=== PATIENT | male | born 1985 | race Caucasian/White ===

== ENCOUNTER 2017-01-14 06:15 | Emergency (ER) | payer OTHER ==
[~2017-01-14] VITALS: Ht 188 cm; Wt 79.5 kg
[2017-01-14 06:20] VITALS: TEMP 36.7; Ht 188 cm; Wt 79.5 kg
[2017-01-14] MEDS ORDERED: CARI350T27 PO (06:40)
[2017-01-14] MEDS ORDERED: IBUP-1427 PO (06:40)
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
[2017-01-14] MEDS ORDERED: BUPR-79 PO (07:07)
[2017-01-14] MEDS ORDERED: IBUPROFEN 600 MG TAB PO STA (07:23)
[2017-01-14 07:40] VITALS: BP 123/60; PULSE 84; O2SAT 99
== END 2017-01-14 07:30 | disposition home or self-care (01) ==
LOC: C.EDB 06:17
DX: M62.830 Muscle spasm of back (principal); F17.200 Nicotine dependence, unspecified, uncomplicated; Z79.899 Other long term (current) drug therapy; Z88.0 Allergy status to penicillin; Z88.8 Allergy status to other drugs, medicaments and biological substances; Z98.890 Other specified postprocedural states

== ENCOUNTER 2017-03-20 03:45 | Emergency (ER) | payer OTHER ==
[~2017-03-20] VITALS: Ht 188 cm; Wt 78.7 kg
[~2017-03-20 03:45] MED LIST: BUPR-79 PO; IBUP-1427 PO
[2017-03-20 03:51] VITALS: TEMP 36.7; Ht 188 cm; Wt 78.7 kg
[2017-03-20] MEDS ORDERED: CARISOPRODOL 350 MG TAB PO ONE (04:30)
[2017-03-20 05:42] VITALS: BP 128/62; PULSE 84; O2SAT 98
[2017-03-20] MEDS ORDERED: CARI350T27 PO (05:49)
[2017-03-20] MEDS ORDERED: PRED20TA PO (05:49)
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
--- NOTE | 2017-03-20 06:54 | DIAGNOSTIC IMAGING REPORT ---
L-SPINE MIN 4 VIEWS ROUTINE CLINICAL HISTORY: Left leg radiculopathy COMPARISON STUDY: No previous studies for comparison. FINDINGS: No fractures or subluxations are visualized. No destructive lesions are delineated. There is a very minimal spinal curvature. There is no pathologic bowel dilatation. A surgical clip is visualized in the left upper quadrant. IMPRESSION: No fractures, subluxations, or destructive lesions are visualized. No significant disc space narrowing. Electronically signed by: Bc Rae M.D. 03/20/2017 6:52 AM Dictated Date/Time: 03/20/2017 6:52 AM
== END 2017-03-20 06:03 | disposition home or self-care (01) ==
LOC: C.EDB 03:46 → C.EDA 06:03
DX: M54.16 Radiculopathy, lumbar region (principal); F17.200 Nicotine dependence, unspecified, uncomplicated; Z87.442 Personal history of urinary calculi; Z98.890 Other specified postprocedural states; Z79.899 Other long term (current) drug therapy; Z88.0 Allergy status to penicillin; Z88.8 Allergy status to other drugs, medicaments and biological substances; Z82.49 Family history of ischemic heart disease and other diseases of the circulatory system

== ENCOUNTER 2017-04-08 03:03 | Emergency (ER) | payer OTHER ==
[~2017-04-08] VITALS: Ht 188 cm; Wt 80.4 kg
[~2017-04-08 03:03] MED LIST changes: -IBUP-1427 PO; +PRED20TA PO
[2017-04-08 03:06] VITALS: TEMP 37.1; Ht 188 cm; Wt 80.4 kg
[2017-04-08] MEDS ORDERED: NORCO 5/325MG HOME PACK PO ONE (03:45)
[2017-04-08] MEDS ORDERED: NAPR-1169 PO (03:50)
[2017-04-08] MEDS ORDERED: HYDR-5688 PO (03:50)
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
[2017-04-08 04:03] VITALS: BP 138/78; PULSE 97; O2SAT 96
== END 2017-04-08 04:07 | disposition home or self-care (01) ==
LOC: C.EDB 03:04 → C.EDA 04:07
DX: M54.16 Radiculopathy, lumbar region (principal); F17.200 Nicotine dependence, unspecified, uncomplicated; Z90.81 Acquired absence of spleen

== ENCOUNTER 2019-01-20 12:05 | Inpatient (IN) ==
[2019-01-20] MEDS ORDERED: cefTRIAXone SODIUM 2,000 MG/70 ML BAG IV STA (12:54)
[2019-01-20] MEDS ORDERED: VANCOMYCIN HCL 1,750 MG in SODIUM CHLORIDE 0.9% 500 ML IV ONE (12:54)
[2019-01-20] MEDS ORDERED: VANCOMYCIN CONSULT ACTIVE PRN (12:54)
[2019-01-20] MEDS ORDERED: SODIUM CHLORIDE 0.9% 1000ML 2,000 ML IV ONE (12:55)
[2019-01-20 13:13] LABS: Basophils # (auto) 0.05 K/uL (0-0.2); Basophils % (auto) 0.3 %; Eosinophils # (auto) 0.31 K/uL (0-0.5); Hematocrit (blood only) 41.1 % (42-52); Hemoglobin 14.1 g/dL (14.0-18.0); Immature Granulocytes # (auto) 0.05 K/uL (0.00-0.02); Immature Granulocytes % (auto) 0.3 %; Lymphocytes # (auto) 0.88 K/uL (1.2-3.4); Lymphocytes % (auto) 5.6 %; Mean Corpuscular Hgb Conc 34.3 g/dL (32-36); Mean Corpuscular Volume 91.1 fL (80-100); Mean Platelet Volume 9.3 fL (7.4-10.4); Monocytes # (auto) 1.88 K/uL (0.11-0.59); Neutrophils # (auto) 12.53 K/uL (1.4-6.5); Neutrophils % (auto) 79.8 %; Platelet Count 379 K/uL (130-400); RDW Coefficient of Variation 13.7 % (11.5-14.5); RDW Standard Deviation 45.5 fL (36.4-46.3); Red Blood Count 4.51 M/uL (4.7-6.1)
--- NOTE | 2019-01-20 13:21 | XRay Report ---
XR chest 1V portable HISTORY: 34 years-old Male Sepsis acute sepsis COMPARISON: CT abdomen and pelvis 01/04/2019 TECHNIQUE: Portable AP view of the chest FINDINGS: Cardiomediastinal and hilar silhouettes are within normal limits. There is no pneumothorax, pleural e ffusion, focal airspace consolidation or overt pulmonary edema. Bones of the chest appear to be gross ly intact. IMPRESSION: No acute process. The above report was generated using voice recognition software. It may contain grammatical, syntax o r spelling errors. Electronically signed by: Anthony Can M.D. 01/20/2019 1:19 PM
[2019-01-20 13:24] LABS: Prothrombin Time 10.3 Seconds (9.0-12.0)
[2019-01-20 13:29] LABS: Alanine Aminotransferase 20 U/L (12-78); Albumin Level 3.9 gm/dl (3.4-5.0); Aspartate Aminotransferase 13 U/L (15-37); BUN Creatinine Ratio 9.3 (10-20); Bilirubin Direct < 0.1 mg/dl (0-0.2); Blood Urea Nitrogen 11 mg/dl (7-18); Calcium 8.6 mg/dl (8.5-10.1); Carbon Dioxide 25 mmol/L (21-32); Creatinine Clr Calc Pharmacy 108.2 ml/min; Est GFR (African American) 98.1; Est GFR (Non-African American) 84.6; Glucose 100 mg/dl (70-99); Magnesium 2.1 mg/dl (1.8-2.4)
[2019-01-20 13:41] LABS: Albumin Globulin Ratio 1.1 (0.9-2); Alkaline Phosphatase 55 U/L (45-117); Bilirubin,Total 0.2 mg/dl (0.2-1); Chloride 106 mmol/L (98-107); Globulin 3.5 gm/dl (2.5-4.0); Phosphorus 2.5 mg/dl (2.5-4.9); Potassium 3.8 mmol/L (3.5-5.1); Sodium 134 mmol/L (136-145); Total Protein 7.4 gm/dl (6.4-8.2)
[2019-01-20 13:49] LABS: Appearance Urine Clear (Clear); Bacteria Urine Automated Negative (Negative); Bilirubin Urine Negative (Negative); Blood Urine Trace (Negative); Cast Urine Automated 0 /lpf (0-5); Color Urine Yellow; Epithelial Cell Urine Auto 0-5 /lpf (0-5); Glucose Urine UA Negative (Negative); Ketones Urine Negative (Negative); Leukocyte Esterase Urine Negative (Negative); Nitrite Urine Negative (Negative); Protein Urine Negative (Negative); Urobilinogen Urine Negative (Negative); WBC Urine Automated 0 /hpf (0-5)
[2019-01-20] MEDS ORDERED: ACETAMINOPHEN 1,000 MG/100 ML VIAL IV STA (13:49)
[2019-01-20] MEDS ORDERED: IOVERSOL 100ml IV PRN (14:30)
--- NOTE | 2019-01-20 14:50 | CT Scan Report ---
CT SCAN OF THE ABDOMEN AND PELVIS WITH IV CONTRAST CLINICAL HISTORY: Generalized abdominal pain. Fever. COMPARISON STUDY: Recent prior abdominal CT scans dated 01/04/2019 and 01/01/2019. TECHNIQUE: Following the IV administration of 94 cc of Optiray 320, CT scan of the abdomen and pelvi s is performed from the lung bases to the proximal femora. Images are reviewed in the axial, sagittal , and coronal planes. IV contrast was administered without complication. A dose lowering technique wa s utilized adhering to the principles of ALARA. FINDINGS: Lung bases: The heart is normal in size and without pericardial effusion. The lung bases are clear. Liver: The contrast-enhanced liver is normal in size, contour, and attenuation. There is no intrahepa tic biliary ductal dilatation. The hepatic veins and portal veins are patent. Gallbladder: Contracted. Spleen: The spleen is not identified and presumed surgically absent. Splenules are noted in the left upper quadrant. Pancreas: Unremarkable. Adrenal glands: Unremarkable. Kidneys: The contrast enhanced kidneys are normal in size and without hydronephrosis. The kidneys enh ance symmetrically. Abdominal vasculature: The abdominal aorta is normal in course and caliber. Bowel: There is mild colonic fecal retention. No bowel obstruction is seen. The appendix is well-vis ualized and normal. Peritoneum: There is no intraperitoneal free air or abdominal ascites. There is a small fat-containin g umbilical hernia. Lymphadenopathy: None. Pelvic viscera: The bladder wall appears mildly thickened and pericystic stranding is suggested. The prostate and seminal vesicles are normal as imaged. Bilateral varicoceles are suspected. Skeletal structures: No lytic or blastic lesions are seen. IMPRESSION: Question cystitis. Correlation with clinical findings and urinalysis will be required. Electronically signed by: Meño Chanel M.D. 01/20/2019 2:49 PM
[2019-01-20] MEDS ORDERED: METOCLOPRAMIDE HCL INJ 5 MG/ML 2 ML VIAL IV STA (14:56)
--- NOTE | 2019-01-20 15:15 | Emergency Department Note ---
Entered by Rosalva Villasenor acting as a scribe for Stefano García MD History of Present Illness General Chief complaint: Illness Stated complaint: COLD, FEVER, BODY ACHES Time Seen by Provider: 01/20/19 12:42 Source: patient History of Present Illness Onset (ago): day(s) (last night) Location: head Pain Consistency: + other (persistent) Maximum Pain Intensity: 8 Quality: + other (fever) Relieved By: not by medication (aspirin) Associated symptoms: + other (diffuse body pain, chills, congestion, rhinorrhea, pain around kidneys, lower back pain) The patient is a 34 year old male with a history of a splenectomy in 2002 that is presenting to the Emergency Room with complaints of a persistent fever that started last night. The patient reports that he woke up and his eyes were burning. He states that he started to feel feverish with associated chills. He notes that tried a warm bath with no relief in his symptoms. He states that his entire body hurts but notes that his lower back and abdomen are the most severe. The patient notes some associated congestion and rhinorrhea. He reports that he took a home pack of pain medication that he was given after his last stay in the hospital which helped to relieve the pain. He notes that aspirin did not relieve his pain. He states that he has been in the hospital recently for kidney pain and has been started on antibiotics each time. He notes that his white count was elevated and his lymph nodes were swollen during his last visit. The patient denies any recent known tick bites but notes that he works outside often. He denies any known history of kidney stones. The patient reports that he has not been able to make an appointment with a GI doctor. 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 He notes that he smokes a pack of cigarettes every 3 days and is trying to quit. The patient notes that he had his spleen removed after it ruptured during an accident. Home Medications Home Medications Medication Instructions Recorded Confirmed Type famotidine 40 mg PO DAILY PRN 06/26/18 01/20/19 History Allergies Allergy/AdvReac Type Severity Reaction Status Date / Time Penicillins Allergy Intermediate hives Verified 01/20/19 12:42 cyclobenzaprine AdvReac Mild dizzy, Verified 01/20/19 12:42 drunk feeling Past Med/Surg History Medical History Abdominal pain (Acute) Viral syndrome (Acute) Tobacco use disorder 1 pack every 3 days History of renal colic (Chronic) Surgical History History of splenectomy (Chronic) Social History Preferred Language: Korean marital status: Single Current Living Situation: Alone current occupational status: employed Feels Safe at Home: Yes Smoking Status: Current every day smoker Review of Systems See HPI for pertinent positives & negatives. and A total of 10 systems reviewed and were otherwise negative Physical Exam Vital Signs Vital Signs - 24 hr 01/20/19 12:18 01/20/19 13:12 01/20/19 13:13 Temperature 38.0 C H Temperature Source Oral Sepsis Recent Fever Within 48 Hours Yes Sepsis New/Unexplained Change in Mental Status Yes Sepsis Action Taken by Nursing Physician Notified Pulse Rate 111 H 100 H Pulse Rate from SpO2 Sensor 98 H Respiratory Rate 22 25 H Respiratory Effort / Characteristics Non-Labored Respiratory Depth Normal Blood Pressure 118/73 145/80 H Blood Pressure Mean 88 101 Blood Pressure Position Sitting Pulse Oximetry 99 97 98 Oxygen Delivery Method Room Air Room Air 01/20/19 13:18 01/20/19 13:20 01/20/19 13:31 Temperature Temperature Source Sepsis Recent Fever Within 48 Hours Sepsis New/Unexplained Change in Mental Status Sepsis Action Taken by Nursing Pulse Rate 101 H 108 H 90 Pulse Rate from SpO2 Sensor 99 H 102 H 89 Respiratory Rate 22 24 19 Respiratory Effort / Characteristics Respiratory Depth Blood Pressure Blood Pressure Mean Blood Pressure Position Pulse Oximetry 98 98 99 Oxygen Delivery Method 01/20/19 13:40 Temperature Temperature Source Sepsis Recent Fever Within 48 Hours Sepsis New/Unexplained Change in Mental Status Sepsis Action Taken by Nursing Pulse Rate 93 H Pulse Rate from SpO2 Sensor 93 H Respiratory Rate 20 Respiratory Effort / Characteristics Respiratory Depth Blood Pressure Blood Pressure Mean Blood Pressure Position Pulse Oximetry 97 Oxygen Delivery Method GENERAL: Awake, alert, uncomfortable-appearing, in no distress HENT: Normocephalic, atraumatic. Oropharynx with dry mucous membranes and otherwise unremarkable. EYES: Normal conjunctiva. Sclera non-icteric. NECK: Supple. No nuchal rigidity. FROM. No JVD. RESPIRATORY: CTAB CARDIAC: Tachycardic rate, normal rhythm. Extremities warm and well perfused. Pulses equal. ABDOMEN: Soft, non-distended. Generalized abdominal tenderness. No rebound or guarding. No masses. RECTAL: Deferred. MUSCULOSKELETAL: Chest examination reveals no tenderness. The back is symmetrical on inspection without obvious abnormality. There is no CVA tenderness to palpation. No joint edema. LOWER EXTREMITIES: Calves are equal size bilaterally and non-tender. No edema. No discoloration. NEURO: Normal sensorium. No sensory or motor deficits noted. SKIN: No rash or jaundice noted. Course 1317:The patient was evaluated in room C02B. A complete history and physical examination was performed. 1510: Case was discussed with Dr. Asher, [facility] hospitalist, who will evaluate the patient for admission. Administered Medications Ioversol (Optiray 320 100ml) 94 ml IV ONCE PRN PRN Reason: Interaction Checking Stop: 01/24/19 14:29 Last Admin: 01/20/19 14:32 Dose: 94 ml Documented by: [id number] Discontinued Medications Ceftriaxone Sodium (Rocephin) 2,000 mg in 70 mls @ 140 mls/hr IV NOW STA Stop: 01/20/19 13:23 Last Infusion: 01/20/19 14:03 Dose: 0 mls/hr Documented by: [id number] Admin: 01/20/19 13:22 Dose: 140 mls/hr Documented by: [id number] Vancomycin HCl 1,750 mg/ (Sodium Chloride) 535 mls @ 200 mls/hr IV NOW ONE; Protocol Stop: 01/20/19 15:34 Last Admin: 01/20/19 13:17 Dose: 200 mls/hr Documented by: [id number] Sodium Chloride (Nss 1000ml) 2,000 mls @ 999 mls/hr IV .Q2H1M ONE Stop: 01/20/19 14:55 Last Infusion: 01/20/19 15:04 Dose: 0 mls/hr Documented by: [id number] Admin: 01/20/19 13:17 Dose: 999 mls/hr Documented by: [id number] Acetaminophen (Ofirmev) 1,000 mg in 100 mls @ 400 mls/hr IV NOW STA Stop: 01/20/19 14:03 Last Infusion: 01/20/19 14:21 Dose: 0 mls/hr Documented by: [id number] Admin: 01/20/19 13:59 Dose: 400 mls/hr Documented by: [id number] Metoclopramide HCl (Reglan) 10 mg IV NOW STA Stop: 01/20/19 14:57 Last Admin: 01/20/19 15:19 Dose: 10 mg Documented by: [id number] Medical Decision Making Differential Diagnosis Differential diagnosis: Etiologies such as viral syndrome, otitis, pharyngitis, pneumonia, influenza, meningitis, urinary tract infection, sepsis, bacteremia, as well as others were entertained. Medical Records Attestation: I reviewed the patient's medical records. Home Medications Current Medication List: was personally reviewed by me Laboratory Data Attestation: I reviewed the patient's lab results. Result diagrams: 01/20/19 13:04 01/20/19 13:04 Lab Results 01/20/19 01/20/19 01/20/19 Range/Units 13:04 13:04 13:04 WBC 15.70 H (4.8-10.8) K/uL RBC 4.51 L (4.7-6.1) M/uL Hgb 14.1 (14.0-18.0) g/dL Hct 41.1 L (42-52) % MCV 91.1 (80-100) fL MCH 31.3 (25-34) pg MCHC 34.3 (32-36) g/dL RDW Std Deviation 45.5 (36.4-46.3) fL RDW Coeff of Jayson 13.7 (11.5-14.5) % Plt Count 379 (130-400) K/uL MPV 9.3 (7.4-10.4) fL Immature Gran % (Auto) 0.3 % Neut % (Auto) 79.8 % Lymph % (Auto) 5.6 % Baldwin % (Auto) 12.0 % Eos % (Auto) 2.0 % Baso % (Auto) 0.3 % Immature Gran # (Auto) 0.05 H (0.00-0.02) K/uL Neut # (Auto) 12.53 H (1.4-6.5) K/uL Lymph # (Auto) 0.88 L (1.2-3.4) K/uL Baldwin # (Auto) 1.88 H (0.11-0.59) K/uL Eos # (Auto) 0.31 (0-0.5) K/uL Baso # (Auto) 0.05 (0-0.2) K/uL PT 10.3 (9.0-12.0) Seconds INR 1.0 (0.9-1.1) APTT 28.0 (21.0-31.0) Seconds PTT Ratio 1.0 Sodium 134 L (136-145) mmol/L Potassium 3.8 (3.5-5.1) mmol/L Chloride 106 (98-107) mmol/L Carbon Dioxide 25 (21-32) mmol/L Anion Gap 3.0 (3-11) BUN 11 (7-18) mg/dl Creatinine 1.14 (0.6-1.4) mg/dl Est Cr Clr Drug Dosing 108.2 ml/min Est GFR ( Amer) 98.1 Est GFR (Non-Af Amer) 84.6 BUN/Creatinine Ratio 9.3 L (10-20) Glucose 100 H (70-99) mg/dl Lactate (0.4-2.0) mmol/L Calcium 8.6 (8.5-10.1) mg/dl Phosphorus 2.5 (2.5-4.9) mg/dl Magnesium 2.1 (1.8-2.4) mg/dl Total Bilirubin 0.2 (0.2-1) mg/dl Direct Bilirubin < 0.1 (0-0.2) mg/dl AST 13 L (15-37) U/L ALT 20 (12-78) U/L Alkaline Phosphatase 55 (45-117) U/L Total Protein 7.4 (6.4-8.2) gm/dl Albumin 3.9 (3.4-5.0) gm/dl Globulin 3.5 (2.5-4.0) gm/dl Albumin/Globulin Ratio 1.1 (0.9-2) Urine Color Urine Appearance (Clear) Urine pH (4.5-7.5) Ur Specific [place] (1.000-1.030) Urine Protein (Negative) Urine Glucose (UA) (Negative) Urine Ketones (Negative) Urine Blood (Negative) Urine Nitrite (Negative) Urine Bilirubin (Negative) Urine Urobilinogen (Negative) Ur Leukocyte Esterase (Negative) Urine WBC (Auto) (0-5) /hpf Urine RBC (Auto) (0-4) /hpf U Hyaline Cast (Auto) (0-5) /lpf U Epithel Cells (Auto) (0-5) /lpf Urine Bacteria (Auto) (Negative) Lyme Disease IgG Ab (Negative) Lyme Disease IgM Ab (Negative) 01/20/19 01/20/19 01/20/19 Range/Units 13:04 13:04 13:33 WBC (4.8-10.8) K/uL RBC (4.7-6.1) M/uL Hgb (14.0-18.0) g/dL Hct (42-52) % MCV (80-100) fL MCH (25-34) pg MCHC (32-36) g/dL RDW Std Deviation (36.4-46.3) fL RDW Coeff of Jayson (11.5-14.5) % Plt Count (130-400) K/uL MPV (7.4-10.4) fL Immature Gran % (Auto) % Neut % (Auto) % Lymph % (Auto) % Baldwin % (Auto) % Eos % (Auto) % Baso % (Auto) % Immature Gran # (Auto) (0.00-0.02) K/uL Neut # (Auto) (1.4-6.5) K/uL Lymph # (Auto) (1.2-3.4) K/uL Baldwin # (Auto) (0.11-0.59) K/uL Eos # (Auto) (0-0.5) K/uL Baso # (Auto) (0-0.2) K/uL PT (9.0-12.0) Seconds INR (0.9-1.1) APTT (21.0-31.0) Seconds PTT Ratio Sodium (136-145) mmol/L Potassium (3.5-5.1) mmol/L Chloride (98-107) mmol/L Carbon Dioxide (21-32) mmol/L Anion Gap (3-11) BUN (7-18) mg/dl Creatinine (0.6-1.4) mg/dl Est Cr Clr Drug Dosing ml/min Est GFR ( Amer) Est GFR (Non-Af Amer) BUN/Creatinine Ratio (10-20) Glucose (70-99) mg/dl Lactate 1.0 (0.4-2.0) mmol/L Calcium (8.5-10.1) mg/dl Phosphorus (2.5-4.9) mg/dl Magnesium (1.8-2.4) mg/dl Total Bilirubin (0.2-1) mg/dl Direct Bilirubin (0-0.2) mg/dl AST (15-37) U/L ALT (12-78) U/L Alkaline Phosphatase (45-117) U/L Total Protein (6.4-8.2) gm/dl Albumin (3.4-5.0) gm/dl Globulin (2.5-4.0) gm/dl Albumin/Globulin Ratio (0.9-2) Urine Color Yellow Urine Appearance Clear (Clear) Urine pH 8.0 H (4.5-7.5) Ur Specific [place] 1.020 (1.000-1.030) Urine Protein Negative (Negative) Urine Glucose (UA) Negative (Negative) Urine Ketones Negative (Negative) Urine Blood Trace H (Negative) Urine Nitrite Negative (Negative) Urine Bilirubin Negative (Negative) Urine Urobilinogen Negative (Negative) Ur Leukocyte Esterase Negative (Negative) Urine WBC (Auto) 0 (0-5) /hpf Urine RBC (Auto) 5-10 H (0-4) /hpf U Hyaline Cast (Auto) 0 (0-5) /lpf U Epithel Cells (Auto) 0-5 (0-5) /lpf Urine Bacteria (Auto) Negative (Negative) Lyme Disease IgG Ab Negative (Negative) Lyme Disease IgM Ab Negative (Negative) Imaging Data Radiologist's Impression: Radiology results as stated below per my review and the radiologist's interpretation: XR chest 1V portable HISTORY: 34 years-old Male Sepsis acute sepsis COMPARISON: CT abdomen and pelvis 01/04/2019 TECHNIQUE: Portable AP view of the chest FINDINGS: Cardiomediastinal and hilar silhouettes are within normal limits. There is no pneumothorax, pleural effusion, focal airspace consolidation or overt pulmonary edema. Bones of the chest appear to be grossly intact. IMPRESSION: No acute process. The above report was generated using voice recognition software. It may contain grammatical, syntax or spelling errors. Electronically signed by: Anthony Can M.D. 01/20/2019 1:19 PM ---- CT SCAN OF THE ABDOMEN AND PELVIS WITH IV CONTRAST CLINICAL HISTORY: Generalized abdominal pain. Fever. COMPARISON STUDY: Recent prior abdominal CT scans dated 01/04/2019 and 01/01/2019. TECHNIQUE: Following the IV administration of 94 cc of Optiray 320, CT scan of the abdomen and pelvis is performed from the lung bases to the proximal femora. Images are reviewed in the axial, sagittal, and coronal planes. IV contrast was administered without complication. A dose lowering technique was utilized adhering to the principles of ALARA. FINDINGS: Lung bases: The heart is normal in size and without pericardial effusion. The lung bases are clear. Liver: The contrast-enhanced liver is normal in size, contour, and attenuation. There is no intrahepatic biliary ductal dilatation. The hepatic veins and portal veins are patent. Gallbladder: Contracted. Spleen: The spleen is not identified and presumed surgically absent. Splenules are noted in the left upper quadrant. Pancreas: Unremarkable. Adrenal glands: Unremarkable. Kidneys: The contrast enhanced kidneys are normal in size and without hydronephrosis. The kidneys enhance symmetrically. Abdominal vasculature: The abdominal aorta is normal in course and caliber. Bowel: There is mild colonic fecal retention. No bowel obstruction is seen. The appendix is well-visualized and normal. Peritoneum: There is no intraperitoneal free air or abdominal ascites. There is a small fat-containing umbilical hernia. Lymphadenopathy: None. Pelvic viscera: The bladder wall appears mildly thickened and pericystic stranding is suggested. The prostate and seminal vesicles are normal as imaged. Bilateral varicoceles are suspected. Skeletal structures: No lytic or blastic lesions are seen. IMPRESSION: Question cystitis. Correlation with clinical findings and urinalysis will be required. Electronically signed by: Meño Chanel M.D. 01/20/2019 2:49 PM ECG Data Attestation: I personally reviewed and interpreted this ECG as follows: Indication: other (fever, s/p splenectomy) Rate (beats per minute): 86 Rhythm: normal sinus (with sinus arrhythmia ) Findings: + other (normal axis); no ST depression, no ST elevation and no acute ischemic change Blood Pressure Blood Pressure Findings: Normal blood pressure MDM Narrative The patient is a pleasant 34-year-old gentleman with a past medical history of asplenia who presents emergency department with feverishness, chills and body aches over the past 24 hours per hpi. On arrival patient is febrile to 38.0, tachycardic in the 110s but vital signs otherwise stable. On exam patient appears clinically dry. He has generalized abdominal tenderness without guardi ng. Given the patient is asplenic with objective fever blood cultures were drawn and patient was ordered for empiric vancomycin and ceftriaxone. EKG without overt acute ischemia. Chest x-ray negative. WBC 15.7. Lactate wnl and chemistry without acidosis. Hbg and platelets wnl. CT abd pelvis with question of Cystitis however UA negative for infection. LFTs unremarkable. Given the patient is asplenic with fever reasonable to admit the patient for further management. 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 Given normal platelets and LFTs will defer additional tick-borne testing at this time. Case was discussed with Dr. Asher, [facility] hospitalist, who will evaluate the patient for admission. Impression & Plan Fever, Sinus tachycardia, Leukocytosis, Asplenia Discharge Plan Visit Data Chief Complaint: Illness Stated Complaint: COLD, FEVER, BODY ACHES ED Provider: Stefano García Discharge Problem: Fever, Sinus tachycardia, Leukocytosis, Asplenia Patient Disposition: Being Evaluated by Hospitalist Forms Stand Alone Forms: My [facility] Differential Prescriptions Prescriptions: No Action famotidine 20 mg Tablet 40 mg PO DAILY PRN (Reason: Gastric Reflux) RF: 0 Referrals Referrals: PCP,NO [Primary Care Provider] - The scribe's documentation has been prepared under my direction and personally reviewed by me in its entirety. I confirm that the note above accurately reflects all work, treatment, procedures, and medical decision making performed by me.
[2019-01-20] MEDS ORDERED: MoRPHine SULFATE 2 MG/ML CARP IV STA (15:29)
--- NOTE | 2019-01-20 15:38 | History & Physical Report ---
Date of Service January 20, 2019 Assessment & Plan (1) Viral syndrome: Fever, leukocytosis, arthralgia, low back pain. Will treat conservatively. Several doses of intravenous Solu-Medrol. IV fluids. Clear liquids for now and advance as tolerated Present on Admission?: Yes (2) Abdominal pain: Seems to be a viral etiology. Consider GI consultation if symptoms persist Present on Admission?: Yes (3) History of splenectomy: Ruptured spleen at age 16 Present on Admission?: Yes (4) DVT prophylaxis: Early ambulation History of Present Illness Chief Complaint: Fever, abdominal pain, arthralgias, low back pain Primary Care Provider: NO PCP 34-year-old male with a 1 day history of intermittent fever, diffuse abdominal pain, nausea, diffuse arthralgias, low back pain. Abdominal CT scan is negative. Chest x-ray negative. Urine analysis negative. White blood cell count is elevated. His asplenia which raises some concern but I believe he has a viral illness at this time. He will be treated conservatively with supportive care and several doses of IV steroids along with IV fluids and clear liquid diet. If his abdominal pain persist, GI consultation can be considered. He is placed on observation status for further assessment per Allergies Allergy/AdvReac Type Severity Reaction Status Date / Time Penicillins Allergy Intermediate hives Verified 01/20/19 12:42 cyclobenzaprine AdvReac Mild dizzy, Verified 01/20/19 12:42 drunk feeling Home Medications Home Medications Medication Instructions Recorded Confirmed Type famotidine 40 mg PO DAILY PRN 06/26/18 01/20/19 History Past Med/Surg History Medical History Tobacco use disorder 1 pack every 3 days History of renal colic (Chronic) Surgical History History of splenectomy (Chronic) Social History Preferred Language: Irish marital status: Single Current Living Situation: Alone current occupational status: employed Feels Safe at Home: Yes Smoking Status: Current every day smoker Review of Systems Review of Systems: Constitutional-fever and chills. Malaise ENT-no blurred vision, no double vision, no epistaxis, no sore throat Respiratory-no cough, no wheezing, no shortness of breath Cardiac-no palpitations, no chest pain, no syncope GI-diffuse abdominal discomfort and nausea. No vomiting or diarrhea -no urinary retention, no urinary incontinence, no dysuria, no hematuria Musculoskeletal-diffuse arthralgias. Low back pain Skin-no bruising, no rashes, no pruritus Neuro-no isolated weakness, no paresthesia, no weakness Psych-no depression, no anxiety Physical Exam Physical Exam: General-alert and oriented x3, no fevers, no chills HEENT-head atraumatic and normocephalic, TMs intact bilaterally, pupils equal and reactive to light, extraocular muscles intact Neck-no lymphadenopathy or thyromegaly, trachea midline Chest-clear to auscultation percussion. No rales wheezing or rhonchi Cardiac-regular rate and rhythm, normal S1 and S2, no murmurs Abdomen-normal bowel sounds, no hepatosplenomegaly. Diffuse mild tenderness Musculoskeletal-bilateral low back muscular tenderness Extremities-no cyanosis, clubbing, or edema Neuro-cranial nerves II through XII intact, motor and sensory function within normal limits, strength symmetrical 5/5, no focal deficits Psych-normal affect, normal mood Results & Data Vital Signs (Past 12 Hours) Vital Signs Temp Pulse Resp BP Pulse Ox 01/20/19 13:40 93 H 20 97 01/20/19 13:31 90 19 99 01/20/19 13:20 108 H 24 98 01/20/19 13:18 101 H 22 98 01/20/19 13:13 98 01/20/19 13:12 100 H 25 H 145/80 H 97 01/20/19 12:18 38.0 C H 111 H 22 118/73 99 Laboratory Results 01/20/19 13:04 01/20/19 13:04 PG Care Time/CCT Total # of Minutes Spent Total Time Spent with Patient: Total time spent is greater than 50% in coordination of care (as documented) at patient's floor/unit and/or counseling patient:
[2019-01-20 15:45] LABS: Lyme Ab IgG w/WB Rflx Negative (Negative); Lyme Ab IgM w/WB Rflx Negative (Negative)
[2019-01-20] MEDS ORDERED: ACETAMINOPHEN 325 MG TAB PO PRN (17:59)
[2019-01-20] MEDS ORDERED: ONDANSETRON INJ 2 MG/ML 2 ML VIAL IV PRN (17:59)
[2019-01-20] MEDS: SODIUM CHLORIDE 0.9% 1000ML 1,000 ML IV SCH (18:28)
[2019-01-20] MEDS: methylPREDNISolone 40 MG in SYRINGE 0 ML IV SCH (19:28)
[2019-01-20] MEDS ORDERED: PNEUMOCOCCAL POLYSACCHARIDES 25 MCG/0.5 ML VIAL/SYR IM ONE (21:15)
[2019-01-20] MEDS ORDERED: PNEUMOCOCCAL ADMINISTRATION CHARGE ONE (21:15)
[2019-01-20] MEDS: MoRPHine SULFATE 2 MG/ML CARP IV PRN (22:16)
[2019-01-21] MEDS: SODIUM CHLORIDE 0.9% 1000ML 1,000 ML IV SCH ×3 (01:09→17:38)
[2019-01-21] MEDS: methylPREDNISolone 40 MG in SYRINGE 0 ML IV SCH ×2 (01:09→09:36)
[2019-01-21] MEDS: MoRPHine SULFATE 2 MG/ML CARP IV PRN ×7 (02:54→22:25)
[2019-01-21] MEDS: ALUMINUM/MAGNESIUM SUSP 30 ML UDC PO PRN ×2 (07:07→19:24)
[2019-01-21] MEDS: FAMOTIDINE 20 MG TAB PO SCH (07:07)
[2019-01-21 07:20] LABS: Basophils # (auto) 0.01 K/uL (0-0.2); Basophils % (auto) 0.1 %; Hematocrit (blood only) 41.6 % (42-52); Hemoglobin 14.4 g/dL (14.0-18.0); Immature Granulocytes # (auto) 0.02 K/uL (0.00-0.02); Immature Granulocytes % (auto) 0.1 %; Lymphocytes # (auto) 0.59 K/uL (1.2-3.4); Lymphocytes % (auto) 4.1 %; Mean Corpuscular Hgb Conc 34.6 g/dL (32-36); Mean Corpuscular Volume 91.2 fL (80-100); Mean Platelet Volume 9.6 fL (7.4-10.4); Monocytes # (auto) 0.22 K/uL (0.11-0.59); Monocytes % (auto) 1.5 %; Neutrophils # (auto) 13.61 K/uL (1.4-6.5); Neutrophils % (auto) 94.2 %; Platelet Count 404 K/uL (130-400); RDW Coefficient of Variation 13.6 % (11.5-14.5); RDW Standard Deviation 44.7 fL (36.4-46.3); Red Blood Count 4.56 M/uL (4.7-6.1); White Blood Count 14.45 K/uL (4.8-10.8)
[2019-01-21 07:59] LABS: BUN Creatinine Ratio 8.7 (10-20); Calcium 8.8 mg/dl (8.5-10.1); Creatinine Clr Calc Pharmacy 138.5 ml/min; Est GFR (African American) 131.1; Est GFR (Non-African American) 113.1; Potassium 4.1 mmol/L (3.5-5.1)
[2019-01-21] MEDS ORDERED: VANCOMYCIN CONSULT ACTIVE PRN (15:12)
[2019-01-21] MEDS ORDERED: VANCOMYCIN HCL 2,000 MG in SODIUM CHLORIDE 0.9% 500 ML IV ONE (15:30)
[2019-01-21] MEDS: cefTRIAXone SODIUM 2,000 MG in DEXTROSE 5% 50 ML IV SCH (15:46)
--- NOTE | 2019-01-21 15:47 | Pharmacy Report ---
Pharmacy Abx Initial Consult - Date of Service January 21, 2019 - Pharmacy Dosing Scope Date of Consult: 01/21/19 Consultation requested by: Dr. Gaines Pharmacy is consulted to initiate Vancomycin IV dosing therapy, order appropriate labs and adjust drug dose/frequency. - Subjective The patient is a 34 year old M admitted on 01/20/19 16:12. - Objective Height: 6 ft 2 in Weight: 88 kg Vital Signs (Past 12hrs): Vital Signs Temp Pulse Pulse Resp BP BP Pulse Ox 01/21/19 14:56 36.9 C 59 L 18 117/70 96 01/21/19 07:10 36.8 C 68 18 129/76 98 Lab Results (24hrs): Laboratory Tests (24 Hours) 01/21/19 01/21/19 06:55 06:55 WBC 14.45 H Neut # (Auto) 13.61 H Creatinine 0.89 Est Cr Clr Drug Dosing 138.5 Micro Results: 01/20/19 13:04 Aerobic Blood Culture - Pending Blood Anaerobic Blood Culture - Pending 01/20/19 13:04 Aerobic Blood Culture - Pending Blood Anaerobic Blood Culture - Pending - Risk Factors for Resistance None - Assessment & Plan Assessment 34 year old M admitted for viral illness/asplenic fever Patient does have a PMH significant for splenectomy Renal function appears to be close to baseline Plan IV Vancomycin and Ceftriaxone for treatment of asplenic fever/viral illness Vancomycin IV * Estimated PK Parameters: Vd 0.7 L/kg, Gerardo 0.118 hr-1, t1/2 5.9hr * Loading dose: 2000 mg (23 mg/kg) * Maintenance dose: 1500 mg IV (17 mg/kg) every 8 hours * Goal trough level: 15 to 20 mcg/mL * Trough/Random level ordered for 01/22/19 prior to the 3rd dose Pharmacy will continue to follow and will adjust dose/frequency as necessary. Thank you.
--- NOTE | 2019-01-21 18:15 | Family Medicine Progress Note ---
Date of Service January 21, 2019 Assessment & Plan (1) Fever: Moy Rashid is a 34-year-old man here for fever with asplenia Asplenic fever Patient presented with nonspecific illness fever, feeling generally unwell, and muscular and joint pain He tells me he gets several of these illnesses per year as frequently as once every other month Treated with steroids vancomycin and Rocephin in the ED blood cultures drawn x2 We will discontinue steroids and continue IV antibiotics We will watch patient for minimum 72 hours as precaution as asplenic fever can progress to life-threatening illness very quickly Low threshold for lumbar puncture Back pain Likely musculoskeletal as opposed to due to the infection patient says he usually notices the back pain when he sick This could be due to the fact that that is when he lays in bed the most He also notices it after working for long period of time or being active We will follow him as an outpatient and further work-up his back pain history and likely refer for osteopathic manipulation therapy Does not appear to be secondary to bilateral kidney illness Health maintenance Patient currently does not follow with any primary care Patient gets sick frequently for unknown reason Patient has been trying to quit smoking and patient has chronic back pain I will try to arrange to follow patient in the outpatient setting upon discharge from this admission F/C/N: Regular diet DVT prophylaxis:Not indicated due to patient's age Disposition: MedSurg for next 72 hours (2) Leukocytosis: (3) Asplenia: (4) DVT prophylaxis: Supervising Physician Co-Signing Physician Notes I personally examined the patient and verified all nunez points of history and exam, discussed case, and agree with decision making with Dr Gaines. Main complaints now are back pain, and wondering why always gets sick. Overall feeling apparently better than admission. In general he is awake and alert and oriented pleasant no distress. HEENT normocephalic atraumatic mucous membranes moist. Breathing is unlabored no accessory muscle use good effort. Abdomen is soft he has a midline scar, no guarding/rebound/rigidity. Musculoskeletal/osteopathiche does have paraspinal asymmetric hypertrophy left greater than right, he also has bilateral probably right slightly greater than left tenderness to palpation to the 12th rib. No crepitus, no subcutaneous fluctuance. Fever/concern on sepsis in the context of an asplenic patientcontinue Vanco and Rocephin pending serial exams and culture results. Fortunately he looks extremely well and his exam/history is quite reassuring. This may in fact all be a viral syndrome, but certainly given the asplenia guidelines suggest this aggressive monitoring and management at least early on. 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 Continue supportive care. Back painappears to be highly biomechanical. I suspect that his lumbar paraspinal asymmetric hypertonicity has then led to secondary strain of the quadratus lumborum muscle, and this appears to be what he feels his pain with breathing in his low back. Further I suspect that with a steady treatment regimen of OMT once he is out of the hospital, it is likely that he will have significant improvement in pain over time. For now supportive care, diclofenac gel, work on referral to DO as outpatient. 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 Certainly would want to follow longitudinally to ensure there is no other hints of an autoimmune disease at play as well, but this seems unlikely. Presley Rashid is a 34-year-old man here for fever. 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 He is feeling okay currently he is endorsing quite a bit of back pain which is located at his quadratus lumborum muscles bilaterally. Otherwise he is feeling well his fevers and chills of past he has not had any sweats chills nausea vomiting diarrhea, cough or other upper respiratory symptoms headaches, light sensitivity, stiff neck, urinary symptoms, or new skin rashes that he is aware of Review of Systems Review of Systems: All systems reviewed & are unremarkable except as noted in HPI & below Physical Exam Physical Exam: Constitutional: 34-year-old man appears stated age lying in bed clearly uncomfortable due to back pain Eyes: Extraocular muscle movement intact bilaterally pupils equal round reactive to light no light sensitivity, anicteric sclerae Neck: No lymph nodes palpable no masses detected no tenderness palpation Respiratory: Chest symmetric expansion, lung sounds vesicular bilaterally no wheezes rhonchi or rails Cardiovascular: Regular rate regular rhythm heart sounds dual, no murmurs rubs skips or gallops Gastrointestinal: Abdomen soft nontender no mass detected no costovertebral angle tenderness Musculoskeletal: Back pain reproducible by palpation of quadratus lumborum muscles no other abnormalities detected Results & Data Vital Signs (Past 12 Hours) Vital Signs Temp Pulse Pulse Resp BP BP Pulse Ox 01/21/19 14:56 36.9 C 59 L 18 117/70 96 01/21/19 07:10 36.8 C 68 18 129/76 98 PG Care Time/CCT Total # of Minutes Spent Total Time Spent with Patient: Total time spent is greater than 50% in coordination of care (as documented) at patient's floor/unit and/or counseling patient: Resident Activity Tracking Resident Involvement: Resident Care Provided Care Provided: Adult Hospital Medicine (1) Fever Fever type: unspecified Qualified Code(s): R50.9 - Fever, unspecified
[2019-01-22] MEDS: VANCOMYCIN HCL 1,500 MG in SODIUM CHLORIDE 0.9% 500 ML IV SCH ×4 (00:48→22:42)
[2019-01-22] MEDS: ALUMINUM/MAGNESIUM SUSP 30 ML UDC PO PRN (00:48)
[2019-01-22] MEDS: MoRPHine SULFATE 2 MG/ML CARP IV PRN ×6 (01:25→23:32)
[2019-01-22] MEDS: SODIUM CHLORIDE 0.9% 1000ML 1,000 ML IV SCH ×3 (01:25→19:37)
[2019-01-22] MEDS: cefTRIAXone SODIUM 2,000 MG in DEXTROSE 5% 50 ML IV SCH ×2 (05:02→16:10)
[2019-01-22] MEDS: FAMOTIDINE 20 MG TAB PO SCH (07:26)
[2019-01-22] MEDS: DICLOFENAC SOD 1% GEL 100 GM TUBE EXT SCH ×2 (07:26→21:25)
[2019-01-22 07:47] LABS: Creatinine Clr Calc Pharmacy 154.1 ml/min; Est GFR (Non-African American) 118.2
--- NOTE | 2019-01-22 08:51 | Family Medicine Progress Note ---
Date of Service January 22, 2019 Assessment & Plan (1) Fever: Moy Dillard is a 34-year-old man here for fever with asplenia Asplenic fever Patient presented with nonspecific illness fever, feeling generally unwell, and muscular and joint pain ?has similar events per year as frequently as once every other month In the ED Treated with steroids vancomycin and Rocephin, blood cultures drawn x2 Will d/c steroids continue IV antibiotics Monitor for minimum 72 hours as precaution as asplenic fever can progress to life-threatening illness very quickly Considering his neck pain - Concern in asplenic patients for meningitis, current "neck" pain appears musculoskeletal and not meningeal We will continue to monitor Back pain Likely musculoskeletal from laying in bed Outpt f/u and work up. will arrange osteopathic manipulation therapy No concern of bilateral kidney illness Health maintenance Patient currently does not follow with any primary care Patient gets sick frequently for unknown reason Patient has been trying to quit smoking and patient has chronic back pain I will try to arrange to follow patient in the outpatient setting upon discharge from this admission F/C/N: Regular diet DVT prophylaxis:Patient low risk due to age encouraged regular ambulation Disposition: MedSurg for next 72 hours (2) Leukocytosis: (3) Asplenia: (4) DVT prophylaxis: Supervising Physician Co-Signing Physician Notes Resident Physician Supervision Note: I independently interviewed and examined the patient and verified the nunez history and physical, reviewed labs and image studies, discussed the case with the resident Dr. Gaines and agree with the findings and care plan. Subjective Patient in sitting up in bed watching television, he is feeling a lot of shoulder pain particularly on the left shoulder but also partially on right. He does not have neck pain has good range of motion of the neck and does not endorse any headache or sensitivity to light. He is otherwise feeling okay does still have a sore throat which may be because of his initial fever. Review of Systems Review of Systems: All systems reviewed & are unremarkable except as noted in HPI & below No fevers chills sweats overnight, no meningeal signs, no chest pain shortness of breath to the breathing doing any activities, using restroom okay no abdominal pain no nausea vomiting diarrhea constipation Physical Exam Physical Exam: Constitutional: 34-year-old man appears stated age lying in bed appears mildly uncomfortable Eyes: Extraocular muscle movement intact bilaterally pupils equal round reactive to light no light sensitivity, anicteric sclerae Neck: Several small lymph nodes palpable bilaterally mildly tender no masses detected Some tenderness to palpation over lateral neck muscles Respiratory: Chest symmetric expansion, lung sounds vesicular bilaterally no wheezes rhonchi or rails Cardiovascular: Regular rate regular rhythm heart sounds dual, no murmurs rubs skips or gallops Gastrointestinal: Abdomen soft nontender no mass detected no costovertebral angle tenderness Musculoskeletal: Back pain reproducible by palpation of quadratus lumborum muscles no other abnormalities detected Results & Data Vital Signs (Past 12 Hours) Vital Signs Temp Pulse Resp BP Pulse Ox 01/22/19 06:59 37 C 77 18 133/75 98 01/21/19 22:39 36.5 C 76 20 133/83 97 PG Care Time/CCT Total # of Minutes Spent Total Time Spent with Patient: Total time spent is greater than 50% in coordination of care (as documented) at patient's floor/unit and/or counseling patient: Resident Activity Tracking Resident Involvement: Resident Care Provided Care Provided: Adult Hospital Medicine (1) Fever Fever type: unspecified Qualified Code(s): R50.9 - Fever, unspecified
[2019-01-22] MEDS ORDERED: VANCOMYCIN TROUGH ONE (15:30)
[2019-01-22] MEDS: KETOROLAC 30 MG/ML VIAL IV PRN ×2 (15:40→22:42)
--- NOTE | 2019-01-22 18:17 | Pharmacy Report ---
Pharmacy Abx Dose Short Note - Date of Service January 22, 2019 - Assessment & Plan Assessment 34 year old M receiving vancomycin and ceftriaxone for empiric treatment of asplenic fever Day # 2 of antimicrobial therapy. Blood cultures x 2 show no growth at 48 hours Patient has remained afebrile since 01/20 @2123 (38 C) Plan Vancomycin * Trough level of 13.2 mcg/mL is subtherapeutic * Will change to 1500 mg IV every 6 hours * Goal trough level for this indication : 15 to 20 mcg/mL * Follow-up trough level will be obtained if patient is to continue past 48 hour empiric antibiotic stop date Ceftriaxone * 2 grams IV q12h appropriate as empiric therapy due to potential concern for meningitis Pharmacy will continue to follow and will adjust dose/frequency as necessary. Thank you.
[2019-01-23] MEDS: cefTRIAXone SODIUM 2,000 MG in DEXTROSE 5% 50 ML IV SCH (03:44)
[2019-01-23] MEDS: SODIUM CHLORIDE 0.9% 1000ML 1,000 ML IV SCH ×2 (03:45→13:05)
[2019-01-23] MEDS: VANCOMYCIN HCL 1,500 MG in SODIUM CHLORIDE 0.9% 500 ML IV SCH ×2 (05:20→10:57)
[2019-01-23] MEDS: MoRPHine SULFATE 2 MG/ML CARP IV PRN ×2 (05:55→08:59)
[2019-01-23] MEDS: DICLOFENAC SOD 1% GEL 100 GM TUBE EXT SCH (07:30)
[2019-01-23] MEDS: FAMOTIDINE 20 MG TAB PO SCH (07:30)
[2019-01-23 08:05] LABS: Hematocrit (blood only) 40.4 % (42-52); Hemoglobin 13.7 g/dL (14.0-18.0); Mean Corpuscular Hgb Conc 33.9 g/dL (32-36); Mean Corpuscular Volume 90.8 fL (80-100); Mean Platelet Volume 9.4 fL (7.4-10.4); Platelet Count 385 K/uL (130-400); RDW Coefficient of Variation 13.5 % (11.5-14.5); RDW Standard Deviation 44.9 fL (36.4-46.3); Red Blood Count 4.45 M/uL (4.7-6.1); White Blood Count 10.27 K/uL (4.8-10.8)
[2019-01-23 08:09] LABS: BUN Creatinine Ratio 9.5 (10-20); Calcium 8.3 mg/dl (8.5-10.1); Creatinine Clr Calc Pharmacy 125.8 ml/min; Est GFR (African American) 117.8; Est GFR (Non-African American) 101.6; Potassium 3.6 mmol/L (3.5-5.1)
--- NOTE | 2019-01-23 22:40 | Discharge Summary ---
Date of Service January 23, 2019 Admission HPI Per Admitting Provider 34-year-old male with a 1 day history of intermittent fever, diffuse abdominal pain, nausea, diffuse arthralgias, low back pain. Abdominal CT scan is negative. Chest x-ray negative. Urine analysis negative. White blood cell count is elevated. His asplenia which raises some concern but I believe he has a viral illness at this time. He will be treated conservatively with supportive care and several doses of IV steroids along with IV fluids and clear liquid diet. If his abdominal pain persist, GI consultation can be considered. He is placed on observation status for further assessment per Admission Exam Per Admitting Provider General-alert and oriented x3, no fevers, no chills HEENT-head atraumatic and normocephalic, TMs intact bilaterally, pupils equal and reactive to light, extraocular muscles intact Neck-no lymphadenopathy or thyromegaly, trachea midline Chest-clear to auscultation percussion. No rales wheezing or rhonchi Cardiac-regular rate and rhythm, normal S1 and S2, no murmurs Abdomen-normal bowel sounds, no hepatosplenomegaly. Diffuse mild tenderness Musculoskeletal-bilateral low back muscular tenderness Extremities-no cyanosis, clubbing, or edema Neuro-cranial nerves II through XII intact, motor and sensory function within normal limits, strength symmetrical 5/5, no focal deficits Psych-normal affect, normal mood Principal Diagnosis Asplenic Fever Discharge Exam General-alert and oriented x3, no fevers, no chills HEENT-head atraumatic and normocephalic, TMs intact bilaterally, pupils equal and reactive to light, extraocular muscles intact Neck-no lymphadenopathy or thyromegaly, trachea midline Chest-clear to auscultation percussion. No rales wheezing or rhonchi Cardiac-regular rate and rhythm, normal S1 and S2, no murmurs Abdomen-normal bowel sounds, no hepatosplenomegaly. Diffuse mild tenderness Musculoskeletal-bilateral low back muscular tenderness Extremities-no cyanosis, clubbing, or edema Neuro-cranial nerves II through XII intact, motor and sensory function within normal limits, strength symmetrical 5/5, no focal deficits Psych-normal affect, normal mood Discharge Data Allergies Allergy/AdvReac Type Severity Reaction Status Date / Time Penicillins Allergy Intermediate hives Verified 01/20/19 12:42 cyclobenzaprine AdvReac Mild dizzy, Verified 01/20/19 12:42 drunk feeling Consultations 01/20/19 14:56 ED Decision to Admit Stat Ordered Studies 01/20/19 13:35 CT abd pelvis IV con only Stat Hospital Course (1) Fever: Moy Dillard is a 34-year-old man 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 d/kareem home with no further antibiotics. Back pain Likely musculoskeletal as opposed to due to the infection patient says he usually notices the back pain when he sick This could be due to the fact that that is when he lays in bed the most He also notices it after working for long period of time or being active We will follow him as an outpatient and further work-up his back pain history and likely Health maintenance Patient currently does not follow with any primary care Patient gets sick frequently for unknown reason Patient has been trying to quit smoking and patient has chronic back pain He will follow me in clinic (2) Asplenia: Total Time Total Time Spent Total Time Spent (In Minutes): 22 Total Time Includes: Examination of the Patient, Discharge Planning, Medication Reconciliation, Communication With Other Providers and Other Discharge Plan Discharge Items Patient Disposition: Home - Self-Care Reason For Visit: SUSPECTED VIRAL SYNDROME Discharge Diagnosis: Probable viral illness, Asplenic fever Discharge Goals: Improve disease control and Improve function Activity: Resume your previous activity Non-emergency contact: Primary Care Provider Call non-emergency contact if: you have any medication questions, your symptoms worsen, your pain is not controlled, your pain is worsening and your temperature is above 100.5 Follow-up/Referrals: Ventura Gaines MD [Resident] - 01/27/19 4:10 pm (Please, follow up with Dr. Gaines on SaturdayJanuary 27 at 4:10 pm. *The office is located in [address] of [facility]. This is the big building next to this [facility]. If you need to change or cancel this appointment, call the office at [phone].) Diet: Regular Addtl Provider Instructions: Mr. Dillard it has been a pleasure to meet you and treat you for your febrile illness. We have watched you for 72 hours and are comfortable to discharge you home. If you have any new fevers, chills, rigors please return to medical care. We will have you follow up in my office at [facility] on [facility]. If you have any questions or concerns between now and then don't hesitate to call the office. For your pain and discomfort I would recommend alternating ibuprofen and tylenol throughout the day and transition to as needed after our appointment. Prescriptions: Continued famotidine 20 mg Tablet 40 mg PO DAILY PRN (Reason: Gastric Reflux) RF: 0 Stand-Alone Forms: [facility], Work/School Release (Inpt) Discharge Orders: Discharge Order (Routine); Ordered 01/23/19 Ordered By: Ventura Gaines Admission Data Admit Date/Time: 01/20/19 16:12 Attending Provider: Annalisa Mcgill Admit Provider: Atul Asher Primary Care Provider: Moriah Serra Other Providers: Atul Asher ; John Dykes Service: Medical Other Interventions: Discharge Summary Assessment (RN) Last Done: 01/23/19 13:39 DC Date/Time DO NOT enter until pt leaves facility: 01/23/19 14:00 Supervising Physician Co-Signing Physician Notes Resident Physician Supervision Note: I independently interviewed and examined the patient and verified the nunez history and physical, reviewed labs and image studies, discussed the case with the resident Dr. Gaines and agree with the findings and care plan. Resident Activity Tracking Resident Involvement: Resident Care Provided Care Provided: Adult Hospital Medicine
== END 2019-01-23 14:00 | disposition home or self-care (01) | DRG 866 ==
LOC: ED 12:05 → 2W 16:12 → SUATTDRO 16:12 → 2W 16:57

== ENCOUNTER 2019-01-25 02:48 | Observation (INO) ==
[2019-01-25] MEDS ORDERED: KETOROLAC 30 MG/ML VIAL IV STA (03:32)
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
[2019-01-25] MEDS ORDERED: SODIUM CHLORIDE 0.9% 1000ML 1,000 ML IV SCH (03:45)
[2019-01-25 04:05] LABS: Hematocrit (blood only) 39.3 % (42-52); Hemoglobin 13.9 g/dL (14.0-18.0); Mean Corpuscular Hgb Conc 35.4 g/dL (32-36); Mean Corpuscular Volume 89.1 fL (80-100); Mean Platelet Volume 9.3 fL (7.4-10.4); Platelet Count 369 K/uL (130-400); RDW Coefficient of Variation 13.3 % (11.5-14.5); RDW Standard Deviation 43.6 fL (36.4-46.3); Red Blood Count 4.41 M/uL (4.7-6.1); White Blood Count 14.94 K/uL (4.8-10.8)
[2019-01-25 04:23] LABS: Albumin Level 3.8 gm/dl (3.4-5.0); BUN Creatinine Ratio 11.9 (10-20); Calcium 8.8 mg/dl (8.5-10.1); Creatinine Clr Calc Pharmacy 138.5 ml/min; Est GFR (African American) 131.1; Est GFR (Non-African American) 113.1; Magnesium 2.4 mg/dl (1.8-2.4); Potassium 3.5 mmol/L (3.5-5.1)
[2019-01-25 04:32] LABS: Albumin Globulin Ratio 1.1 (0.9-2); Bilirubin,Total 0.3 mg/dl (0.2-1); C Reactive Protein 2.84 mg/dl (0-0.29); Globulin 3.5 gm/dl (2.5-4.0); Total Protein 7.3 gm/dl (6.4-8.2)
[2019-01-25 04:41] LABS: Basophils # (auto) 0.06 K/uL (0-0.2); Basophils % (auto) 0.4 %; Eosinophils # (auto) 0.07 K/uL (0-0.5); Eosinophils % (auto) 0.5 %; Howell-Jolly Bodies Occasional; Immature Granulocytes # (auto) 0.05 K/uL (0.00-0.02); Immature Granulocytes % (auto) 0.3 %; Lymphocytes # (auto) 1.96 K/uL (1.2-3.4); Lymphocytes % (auto) 13.1 %; Monocytes # (auto) 1.82 K/uL (0.11-0.59); Monocytes % (auto) 12.2 %; Neutrophils # (auto) 10.98 K/uL (1.4-6.5); Neutrophils % (auto) 73.5 %; Pappenheimer Bodies Occasional
[2019-01-25] MEDS ORDERED: MoRPHine SULFATE 4 MG/ML 1 ML CARP\\VIAL IV STA ×3 (04:53→18:45)
[2019-01-25] MEDS ORDERED: LIDOCAINE/EPINEPHRINE 1% 20 ML VIAL INFIL ONE (06:24)
[2019-01-25] MEDS ORDERED: fentaNYL citrate 100 MCG/2 ML VIAL IV STA (06:45)
[2019-01-25] MEDS ORDERED: VANCOMYCIN CONSULT ACTIVE PRN ×2 (08:06→10:40)
[2019-01-25] MEDS ORDERED: VANCOMYCIN HCL 1,000 MG/270 ML BAG IV STA (08:06)
[2019-01-25] MEDS ORDERED: cefTRIAXone SODIUM 2,000 MG/70 ML BAG IV STA (08:06)
--- NOTE | 2019-01-25 08:09 | CT Scan Report ---
CT head/brain wo con CLINICAL HISTORY: 34 years-old Male with fevers, asplenic, pain. Acute fever with headache TECHNIQUE: Multiple axial CT images of the head were obtained without contrast. A dose lowering tech nique was utilized adhering to the principles of ALARA. CT DOSE: 537.48 mGy.cm COMPARISON: Head CT 06/27/2018 FINDINGS: No acute intracranial hemorrhage, midline shift, intracranial mass, hydrocephalus, territorial ischem ia or abnormal extra-axial collection. The calvarium is intact. Moderate mucosal thickening of the ethmoid air cells and adenoid tonsils. M astoid air cells are clear. Soft tissues and orbits appear unremarkable. IMPRESSION: 1. No acute intracranial abnormality. 2. Moderate mucosal thickening of the ethmoid air cells. The above report was generated using voice recognition software. It may contain grammatical, syntax o r spelling errors. Electronically signed by: Anthony Can M.D. 01/25/2019 8:07 AM
--- NOTE | 2019-01-25 08:37 | XRay Report ---
XR chest 1V portable HISTORY: 34 years-old Male fever, illness acute fever COMPARISON: Chest radiograph and CT abdomen and pelvis 01/20/2019 TECHNIQUE: Portable AP view of the chest FINDINGS: Cardiomediastinal and hilar silhouettes are within normal limits. No pneumothorax, pleural effusion, focal airspace consolidation or overt pulmonary edema. Bones of the chest appear grossly intact. IMPRESSION: No acute process. The above report was generated using voice recognition software. It may contain grammatical, syntax o r spelling errors. Electronically signed by: Anthony Can M.D. 01/25/2019 8:36 AM
[2019-01-25] MEDS ORDERED: FAMOTIDINE 20 MG TAB PO PRN (10:28)
[2019-01-25] MEDS ORDERED: ONDANSETRON INJ 2 MG/ML 2 ML VIAL IV PRN (10:28)
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
--- NOTE | 2019-01-25 11:42 | Pharmacy Report ---
Pharmacy Abx Dose Short Note - Date of Service January 25, 2019 - Assessment & Plan Assessment 34 year old M returns to [facility] after discharge on 01/23 with recurrent fever. Reports fever of 101 last night with chills and body aches. LP was attempted in ED but unsuccessful. WBC 14.94 (10.3 prior to discharge on 01/23). Lyme and Heard screen negative Rapid Strep test negative Anaplasmosis sent Blood cultures x2 pending Plan Vancomycin * Prior to discharge patient was receiving Vancomycin 1500mg (~17mgkg) q6h. This regimen was started after a previous dose yielded a subtherapeutic trough. However, a trough for this new regimen was not assessed prior to discharge. * Since ~4-5 estimated half-lives have passed since last dose prior to discharge, it is unlikely that patient has any detectable levels of drug, therefore a random level is not needed. * Patient given 1gm (11 mg/kg) X1 in the ED, will supplement with another 1gm IV x1 dose to get a LD of ~23 mg/kg. * Resume Vancomycin 1500mg IV Q6H regimen and check trough level with 4th maintenance dose. This should be reflective of css. * Est p'kinetics: t1/2 ~5.7 hrs, Vd = 0.7, ke= 0.12 * Goal trough 15-20 Ceftriaxone (not a consult) * 2 grams IV q24H is appropriate for body weight, however if indicated for empiric coverage of meningitis then would suggest increasing frequency to every 12 hours. Pharmacy will continue to follow and will adjust dose/frequency as necessary. Thank you.
[2019-01-25] MEDS ORDERED: VANCOMYCIN HCL 1,000 MG in SODIUM CHLORIDE 0.9% 250 ML IV ONE (11:45)
[2019-01-25] MEDS: ACETAMINOPHEN 325 MG TAB PO PRN (12:42)
[2019-01-25 18:49] LABS: Appearance Urine Clear (Clear); Bilirubin Urine Negative (Negative); Blood Urine Negative (Negative); Color Urine Yellow; Glucose Urine UA Negative (Negative); Ketones Urine Negative (Negative); Leukocyte Esterase Urine Negative (Negative); Nitrite Urine Negative (Negative); Protein Urine Negative (Negative); Specific Gravity Urine 1.022 (1.000-1.030); Urobilinogen Urine Negative (Negative)
[2019-01-25] MEDS: VANCOMYCIN HCL 1,500 MG in SODIUM CHLORIDE 0.9% 500 ML IV SCH ×2 (19:05→23:36)
[2019-01-25] MEDS: cefTRIAXone SODIUM 2,000 MG in DEXTROSE 5% 50 ML IV SCH (22:19)
[2019-01-25] MEDS ORDERED: TRAMADOL HCL 50 MG TABLET PO STA (23:47)
[2019-01-26] MEDS ORDERED: HYDROmorphone INJ 0.5 MG/0.5 ML SYR IV STA (01:11)
[2019-01-26] MEDS: VANCOMYCIN HCL 1,500 MG in SODIUM CHLORIDE 0.9% 500 ML IV SCH ×3 (05:51→18:02)
[2019-01-26] MEDS: ACETAMINOPHEN 325 MG TAB PO PRN (05:51)
[2019-01-26 07:17] LABS: Hematocrit (blood only) 40.2 % (42-52); Hemoglobin 13.9 g/dL (14.0-18.0); Mean Corpuscular Hgb Conc 34.6 g/dL (32-36); Mean Corpuscular Volume 91.4 fL (80-100); Mean Platelet Volume 9.1 fL (7.4-10.4); Platelet Count 396 K/uL (130-400); RDW Coefficient of Variation 13.6 % (11.5-14.5); RDW Standard Deviation 44.9 fL (36.4-46.3); White Blood Count 10.44 K/uL (4.8-10.8)
[2019-01-26] MEDS: TRAMADOL HCL 50 MG TABLET PO PRN ×2 (07:46→21:44)
[2019-01-26 07:57] LABS: Albumin Level 3.2 gm/dl (3.4-5.0); BUN Creatinine Ratio 8.1 (10-20); Calcium 8.6 mg/dl (8.5-10.1); Creatinine Clr Calc Pharmacy 132.6 ml/min; Est GFR (African American) 125.5; Est GFR (Non-African American) 108.2; Potassium 3.7 mmol/L (3.5-5.1)
[2019-01-26 08:00] LABS: Albumin Globulin Ratio 0.9 (0.9-2); Bilirubin,Total 0.2 mg/dl (0.2-1); Globulin 3.7 gm/dl (2.5-4.0); Total Protein 6.9 gm/dl (6.4-8.2)
[2019-01-26 08:07] LABS: Basophils # (auto) 0.13 K/uL (0-0.2); Basophils % (auto) 1.2 %; Eosinophils # (auto) 1.03 K/uL (0-0.5); Eosinophils % (auto) 9.9 %; Immature Granulocytes # (auto) 0.03 K/uL (0.00-0.02); Immature Granulocytes % (auto) 0.3 %; Lymphocytes # (auto) 2.23 K/uL (1.2-3.4); Lymphocytes % (auto) 21.4 %; Monocytes # (auto) 1.44 K/uL (0.11-0.59); Monocytes % (auto) 13.8 %; Neutrophils # (auto) 5.58 K/uL (1.4-6.5); Neutrophils % (auto) 53.4 %
[2019-01-26] MEDS: cefTRIAXone SODIUM 2,000 MG in DEXTROSE 5% 50 ML IV SCH ×2 (08:27→21:45)
[2019-01-26] MEDS ORDERED: VANCOMYCIN HCL 500 MG in SODIUM CHLORIDE 0.9% 250 ML IV SCH (09:00)
[2019-01-26] MEDS ORDERED: cefTRIAXone SODIUM 2,000 MG in DEXTROSE 5% 50 ML IV SCH (09:00)
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
[2019-01-26] MEDS ORDERED: VANCOMYCIN TROUGH ONE (11:30)
[2019-01-26] MEDS: LIDOCAINE 5% 1 PATCH TD SCH (12:08)
--- NOTE | 2019-01-26 13:35 | Pharmacy Report ---
Pharmacy Abx Dose Short Note - Date of Service January 26, 2019 - Assessment & Plan Assessment 34 year old M receiving vancomycin after presenting to hospital with fever/myalgias Day #2 of antimicrobial therapy. Plan: Vancomycin * Trough level came back therapeutic at 18.6 mcg/ml (goal 15-20 mcg/ml) Unclear source of infection at this time, had been concerned for meningitis. Patient however declined LP in the ER. Patient remains afebrile. * Blood cultures are no growth, throat negative for strep, mono and lyme also negative - ID now consulted to follow the patient * Will continue same vancomycin dosing for now, renal function remains stable - will continue to follow Pharmacy will continue to follow and will adjust dose/frequency as necessary. Thank you.
[2019-01-26] MEDS: KETOROLAC 30 MG/ML VIAL IV PRN (15:49)
--- NOTE | 2019-01-26 20:57 | Family Medicine Progress Note ---
Date of Service January 26, 2019 Assessment & Plan (1) Body aches: 34 year old man here for aslplenic fever, was previously here for 72 hours observation on vanc and rocephin, blood cultures negative no fevers patient sent home. Bounced back 24 hours later. Asplenic Fever Treating empirically with vanc and rocephin Concern for meningitis, unsuccessful LP in ED Will repeat LP tomorrow morning under fluoroscopy White count down to 10.44 Blood cultures negative so far WIll continue antibiotics and will monitor Back Pain Secondary to LP attempt and possibly to infection (flu like illness) Ketorolac added as well as lidoderm patch over LP site F/E/N regular diet DVT PPx: none indicated up and walking Dispo: med surg (2) Neck pain: (3) Fever: Supervising Physician Co-Signing Physician Notes Resident Physician Supervision Note: I independently interviewed and examined the patient and verified the nunez history and physical, reviewed labs and image studies, discussed the case with the resident Dr. Gaines and agree with the findings and care plan. Subjective Moy Dillard feeling okay this morning, not endorsing any neck pain, though a lot of back pain at attempted LP site. Endorses no fevers or chills at this time, no headache, light sensitiivty, nausea vomiting, diarrhea, abdominal pain, shortness of breath, cough, chest pain, or swelling. He is apprehensive to try LP again but eventually begrudgingly agrees. Review of Systems Review of Systems: All systems reviewed & are unremarkable except as noted in HPI & below Physical Exam Physical Exam: General-alert and oriented x3, no fevers, no chills HEENT-head atraumatic and normocephalic, TMs intact bilaterally, pupils equal and reactive to light, extraocular muscles intact Neck-no lymphadenopathy or thyromegaly, trachea midline Chest-clear to auscultation percussion. No rales wheezing or rhonchi Cardiac-regular rate and rhythm, normal S1 and S2, no murmurs Abdomen-normal bowel sounds, no hepatosplenomegaly. Diffuse mild tenderness Musculoskeletal-bilateral low back muscular tenderness Extremities-no cyanosis, clubbing, or edema Neuro-cranial nerves II through XII intact, motor and sensory function within normal limits, strength symmetrical 5/5, no focal deficits Psych-Pressured speech Results & Data Vital Signs (Past 12 Hours) Vital Signs Temp Pulse Resp BP Pulse Ox 01/26/19 15:12 36.5 C 62 18 102/61 96 PG Care Time/CCT Total # of Minutes Spent Total Time Spent with Patient: Total time spent is greater than 50% in coordination of care (as documented) at patient's floor/unit and/or counseling patient: Resident Activity Tracking Resident Involvement: Resident Care Provided Care Provided: Adult Hospital Medicine (1) Fever Fever type: unspecified Qualified Code(s): R50.9 - Fever, unspecified
[2019-01-26] MEDS ORDERED: MoRPHine SULFATE 2 MG/ML CARP IV STA (21:38)
[2019-01-27] MEDS: KETOROLAC 30 MG/ML VIAL IV PRN ×2 (00:09→23:38)
[2019-01-27] MEDS: VANCOMYCIN HCL 1,500 MG in SODIUM CHLORIDE 0.9% 500 ML IV SCH ×6 (00:10→22:12)
[2019-01-27] MEDS ORDERED: HYDROmorphone INJ 0.5 MG/0.5 ML SYR IV STA ×2 (01:05→16:11)
[2019-01-27 06:36] LABS: Hematocrit (blood only) 40.6 % (42-52); Hemoglobin 13.8 g/dL (14.0-18.0); Mean Corpuscular Volume 92.1 fL (80-100); Mean Platelet Volume 9.3 fL (7.4-10.4); Platelet Count 412 K/uL (130-400); RDW Coefficient of Variation 13.5 % (11.5-14.5); RDW Standard Deviation 45.5 fL (36.4-46.3); Red Blood Count 4.41 M/uL (4.7-6.1); White Blood Count 7.14 K/uL (4.8-10.8)
[2019-01-27 07:13] LABS: Albumin Globulin Ratio 0.9 (0.9-2); Albumin Level 3.2 gm/dl (3.4-5.0); BUN Creatinine Ratio 13.4 (10-20); Bilirubin,Total 0.2 mg/dl (0.2-1); Calcium 9.1 mg/dl (8.5-10.1); Creatinine Clr Calc Pharmacy 138.5 ml/min; Est GFR (African American) 131.1; Est GFR (Non-African American) 113.1; Globulin 3.6 gm/dl (2.5-4.0); Potassium 4.5 mmol/L (3.5-5.1); Total Protein 6.8 gm/dl (6.4-8.2)
[2019-01-27 07:50] LABS: Giant Platelets 1+; Howell-Jolly Bodies 1+
[2019-01-27 07:52] LABS: ALC (manual) 4.21 K/uL (1.2-3.4); Basophils # (manual) 0.06 K/uL (0-0.2); Basophils % (manual) 0.9 %; Eosinophils # (manual) 1.21 K/uL (0-0.5); Lymphocytes # (manual) 2.55 K/uL (1.2-3.4); Lymphocytes % (manual) 35.7 %; Monocytes % (manual) 9.8 %; Myelocytes # (manual) 0.06 K/uL (0-0); Myelocytes % (manual) 0.9 %; Neutrophils % (manual) 12.5 %; Reactive Lymphocytes # (manual) 1.66 K/uL
[2019-01-27] MEDS: LIDOCAINE 5% 1 PATCH TD SCH (08:07)
[2019-01-27] MEDS ORDERED: LORazepam 0.5 MG TAB PO STA (08:38)
--- NOTE | 2019-01-27 08:44 | Family Medicine Progress Note ---
Date of Service January 27, 2019 Assessment & Plan (1) Body aches: 34 year old man here for aslplenic fever, was previously here for 72 hours observation on vanc and rocephin, blood cultures negative no fevers patient sent home. Bounced back 24 hours later. Asplenic Fever Treating empirically with vanc and rocephin Concern for meningitis, unsuccessful LP in ED White count down to 10.44 Blood cultures negative so far Will continue antibiotics and monitor clinical status For LP today with radiology Pain Secondary to LP attempt and possibly to infection (flu like illness) Ketorolac added as well as lidoderm patch over LP site Anxiety Gave half milligram oral Ativan one-time dose as patient threatens to cancel LP due to anxiety Neutropenia Got CBC with differential this morning patient was neutropenic with absolute neutrophil count of 0.89 Placed on neutropenic precautions We will get peripheral smear and mono spot F/E/N regular diet after procedure DVT PPx: none indicated up and walking Dispo: med surg (2) Neck pain: (3) Fever: Subjective Patient is extremely anxious this morning considering calling off lumbar puncture. Once patient's bedside and tried to reassure him, he is nervous that he is going to feel pain like he did the last time in the ED. Otherwise continues to have headaches that wax and wane and seem to affect the top of his head. No light sensitivity no neck rigidity no chest pain shortness of breath abdominal pain. Continues to have chronic low back pain exacerbated by being in bed. Physical Exam Physical Exam: General-alert and oriented x3, afebrile, Neck-no lymphadenopathy or thyromegaly, trachea midline Chest-clear to auscultation percussion. No rales wheezing or rhonchi Cardiac-regular rate and rhythm, normal S1 and S2, no murmurs Abdomen-normal bowel sounds, no hepatosplenomegaly. No tenderness today soft Musculoskeletal-bilateral low back muscular tenderness Extremities-no cyanosis, clubbing, or edema Neuro-cranial nerves II through XII intact, motor and sensory function within normal limits, strength symmetrical 5/5, no focal deficits Psych-Pressured speech, anxious affect Results & Data Vital Signs (Past 12 Hours) Vital Signs Temp Pulse Resp BP BP Pulse Ox 01/27/19 07:00 36.5 C 53 L 18 109/71 99 01/26/19 22:40 36.8 C 58 L 18 131/85 98 PG Care Time/CCT Total # of Minutes Spent Total Time Spent with Patient: Total time spent is greater than 50% in coordination of care (as documented) at patient's floor/unit and/or counseling patient: Resident Activity Tracking Resident Involvement: Resident Care Provided Care Provided: Adult Hospital Medicine (1) Fever Fever type: unspecified Qualified Code(s): R50.9 - Fever, unspecified
[2019-01-27] MEDS: cefTRIAXone SODIUM 2,000 MG in DEXTROSE 5% 50 ML IV SCH ×2 (10:30→21:27)
[2019-01-27] MEDS ORDERED: HYDROmorphone INJ 0.5 MG/0.5 ML SYR IV ONE ×2 (10:45→22:00)
[2019-01-27] MEDS ORDERED: HYDROmorphone INJ 0.5 MG/0.5 ML SYR ONE (11:14)
--- NOTE | 2019-01-27 11:38 | Fluoroscopy Report ---
FLUOROSCOPIC GUIDED LUMBAR PUNCTURE CLINICAL HISTORY: Asplenia. Fever. PROCEDURE: The risks, benefits, and alternatives to the procedure is discussed with the patient who v oiced understanding. Written informed consent was obtained. The patient was placed prone on the fluor oscopy table. The lower back was prepped and draped in the usual sterile fashion. 1% lidocaine was us ed for local anesthesia. A 22-gauge spinal needle was inserted into the L4-L5 interlaminar space, and approximately 10 cc of clear colorless cerebrospinal fluid was removed. A single spot image was save d. The patient tolerated the procedure well. There were no immediate complications. The patient was t hen returned to the medical floor for further observation. Fluoroscopy time: 0.4 minutes IMPRESSION: Fluoroscopic guided lumbar puncture with removal of approximately 10 cc of cerebrospinal fluid. There were no immediate complications. Electronically signed by: Meño Chanel M.D. 01/27/2019 11:36 AM
--- NOTE | 2019-01-27 14:20 | Infectious Disease Progress Nt ---
Date of Service January 27, 2019 Assessment & Plan (1) Fever: currently afebrile. suspect viral etiology. would benefit from LP, csf gram stain negative, culture pending. continue abx for now, follow cultures. ? if wbc elevation in part due to asplenia, especially with elevated platelets as well. procalcitonin negative, doubt bacterial infection. (2) Leukocytosis: (3) Asplenia: Subjective remains afebrile since admission. remain on vanco and ctx. had csf culture done, gram stain negative, culture pending, no other csf (cell counts etc) available. blood cultures remain negative from this admission and last admission, mono negative, EBV pending. wbc improved today. tolerating abx. Results & Data Vital Signs (Past 12 Hours) Vital Signs Temp Pulse Resp BP BP Pulse Ox 01/27/19 12:27 37 C 54 L 18 125/84 01/27/19 11:30 36.5 C 50 L 14 112/71 96 01/27/19 11:23 66 14 123/66 97 01/27/19 10:43 36.8 C 61 14 118/73 98 01/27/19 10:13 36.8 C 86 20 119/85 97 01/27/19 07:00 36.5 C 53 L 18 109/71 99 Laboratory Results Microbiology 01/27/19 10:04 Cerebral Spinal Fluid Gram Stain - Final 01/25/19 03:32 Throat Group A Streptococcus Rapid Screen - Final Specimen negative for Group A Beta Strep by rapid method. Culture report to follow. 01/25/19 03:32 Throat Group A Beta-Hemolytic Strep Cult - Final No beta strep isolated. 01/26/19 01:35 Throat Group A Streptococcus Rapid Screen - Final Specimen negative for Group A Beta Strep by rapid method. Culture report to follow. 01/26/19 01:35 Throat Group A Beta-Hemolytic Strep Cult - Preliminary No beta strep isolated to date. 01/25/19 04:10 Blood Aerobic Blood Culture - Preliminary No growth in Aerobic bottle after 48 hours. 01/25/19 04:10 Blood Anaerobic Blood Culture - Preliminary No growth in Anaerobic bottle after 48 hours. 01/25/19 03:50 Blood Aerobic Blood Culture - Preliminary No growth in Aerobic bottle after 48 hours. 01/25/19 03:50 Blood Anaerobic Blood Culture - Preliminary No growth in Anaerobic bottle after 48 hours. (1) Fever Fever type: unspecified Qualified Code(s): R50.9 - Fever, unspecified
[2019-01-27] MEDS ORDERED: Nursing to Pharmacy Communication ONE (14:36)
[2019-01-27 16:32] LABS: CSF Chemistry Tube # 1
[2019-01-27 16:44] LABS: CSF Count Tube # 3
[2019-01-27 16:45] LABS: Appearance CSF CLEAR; Color CSF COLORLESS; Red Blood Cell CSF (A) 0 /uL (0-); Red Blood Cell CSF (B) 0 /uL (0-); White Blood Cell CSF (B) 0 /uL (0-5)
[2019-01-27 16:46] LABS: White Blood Cell CSF (A) 0 /uL (0-5)
[2019-01-27 16:54] LABS: CSF Specific Gravity 1.005 (1.006-1.008)
[2019-01-27 17:16] LABS: CSF Glucose 47 mg/dl (40-70); Total Protein CSF 28.1 mg/dl (15-45)
[2019-01-28] MEDS: VANCOMYCIN HCL 1,500 MG in SODIUM CHLORIDE 0.9% 500 ML IV SCH (04:29)
[2019-01-28] MEDS ORDERED: VANCOMYCIN TROUGH ONE ×2 (05:30→15:30)
[2019-01-28 06:07] LABS: Hematocrit (blood only) 39.2 % (42-52); Hemoglobin 13.5 g/dL (14.0-18.0); Mean Corpuscular Hgb Conc 34.4 g/dL (32-36); Mean Platelet Volume 9.2 fL (7.4-10.4); Platelet Count 434 K/uL (130-400); RDW Coefficient of Variation 13.2 % (11.5-14.5); Red Blood Count 4.31 M/uL (4.7-6.1); White Blood Count 7.37 K/uL (4.8-10.8)
[2019-01-28 06:48] LABS: ALC (manual) 3.23 K/uL (1.2-3.4); Basophils # (manual) 0.14 K/uL (0-0.2); Basophils % (manual) 1.9 %; Eosinophils % (manual) 9.5 %; Lymphocytes # (manual) 2.17 K/uL (1.2-3.4); Lymphocytes % (manual) 29.5 %; Monocytes # (manual) 0.42 K/uL (0.11-0.59); Monocytes % (manual) 5.7 %; Neutrophils % (manual) 39.1 %; Reactive Lymphocytes # (manual) 1.05 K/uL; Target Cells 1+; Tear Drop Cells 1+
[2019-01-28 06:50] LABS: Albumin Globulin Ratio 0.9 (0.9-2); Albumin Level 3.1 gm/dl (3.4-5.0); BUN Creatinine Ratio 14.8 (10-20); Bilirubin,Total 0.2 mg/dl (0.2-1); Calcium 8.7 mg/dl (8.5-10.1); Creatinine Clr Calc Pharmacy 135.5 ml/min; Est GFR (African American) 128.8; Est GFR (Non-African American) 111.1; Globulin 3.4 gm/dl (2.5-4.0); Potassium 3.8 mmol/L (3.5-5.1); Total Protein 6.5 gm/dl (6.4-8.2)
[2019-01-28] MEDS: KETOROLAC 30 MG/ML VIAL IV PRN (08:12)
[2019-01-28] MEDS: cefTRIAXone SODIUM 2,000 MG in DEXTROSE 5% 50 ML IV SCH (08:13)
[2019-01-28] MEDS: LIDOCAINE 5% 1 PATCH TD SCH (08:18)
[2019-01-28] MEDS ORDERED: BUTALBITAL/ACETAMIN/CAFFEINE TAB PO PRN (09:06)
[2019-01-28 13:45] LABS: EBV Nuclear Ag Antibody < 18.00 U/ML; EBV Virus Capsid Ag IgG Ab >750.00 U/ML
--- NOTE | 2019-01-28 14:26 | Infectious Disease Progress Nt ---
Date of Service January 28, 2019 Assessment & Plan (1) Fever: currently afebrile. suspect viral etiology. LP negative, had received 1-2 doses abx prior to LP which could affect culture results however, if infection would suspect wbc to be elevated or have elevated protein, even if viral cause. Highly doubt meningitis. will stop abx . Lyme, anaplasma, mono screen negative, suspect viral. Did not have HIV screening however I did not elicit any risk factors to suspect acute antiretroviral syndrome. Ok for d/c from ID standpoint when otherwise stable. (2) Leukocytosis: (3) Asplenia: Subjective pt remains afebrile. tolerating abx. spoke with pharmacy this morning, having issues with infusing vanco, taking > 5 hours to infuse due to line, was placed on hold today pending csf culture which is negative to date. CSF analysis was not available yesterday at time of rounds, now reviewd, 0 wbc, normal glucose and protein, clear and colorless, gram stain and culture negative. blood cultures from 01/20 and 01/25 negative. Afebrile since admission, procalcitonin negative. lyme negative, GAS swab negative x 2, mono negative. wbc normal. Anaplasma negative. Results & Data Vital Signs (Past 12 Hours) Vital Signs Temp Pulse Resp BP Pulse Ox 01/28/19 06:58 36.6 C 60 20 116/71 98 Laboratory Results Microbiology 01/27/19 10:04 Cerebral Spinal Fluid Gram Stain - Final 01/27/19 10:04 Cerebral Spinal Fluid CSF Culture - Preliminary No growth to date. 01/26/19 01:35 Throat Group A Streptococcus Rapid Screen - Final Specimen negative for Group A Beta Strep by rapid method. Culture report to follow. 01/26/19 01:35 Throat Group A Beta-Hemolytic Strep Cult - Final No Group A Beta Strep isolated. 01/25/19 03:32 Throat Group A Streptococcus Rapid Screen - Final Specimen negative for Group A Beta Strep by rapid method. Culture report to follow. 01/25/19 03:32 Throat Group A Beta-Hemolytic Strep Cult - Final No beta strep isolated. 01/25/19 04:10 Blood Aerobic Blood Culture - Preliminary No growth in Aerobic bottle after 48 hours. 01/25/19 04:10 Blood Anaerobic Blood Culture - Preliminary No growth in Anaerobic bottle after 48 hours. 01/25/19 03:50 Blood Aerobic Blood Culture - Preliminary No growth in Aerobic bottle after 48 hours. 01/25/19 03:50 Blood Anaerobic Blood Culture - Preliminary No growth in Anaerobic bottle after 48 hours. PG Care Time/CCT Total # of Minutes Spent Total Time Spent with Patient: Total time spent is greater than 50% in coordination of care (as documented) at patient's floor/unit and/or counseling patient: (1) Fever Fever type: unspecified Qualified Code(s): R50.9 - Fever, unspecified
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
[2019-02-02 11:53] LABS: Lyme DNA PCR CSF or Synovial Not detected (Not Detected); Lyme DNA Source CSF; Lyme IgG CSF NO BANDS DETECTED; Lyme IgM CSF NO BANDS DETECTED
== END 2019-01-28 18:11 | disposition home or self-care (01) ==
LOC: ED 02:48 → 2W 02:48
DX: F17.210 Nicotine dependence, cigarettes, uncomplicated; Z88.1 Allergy status to other antibiotic agents; R50.9 Fever, unspecified; D72.829 Elevated white blood cell count, unspecified; Z88.0 Allergy status to penicillin; Z90.81 Acquired absence of spleen

== ENCOUNTER 2019-12-26 20:37 | Inpatient (IN) ==
[2019-12-26] MEDS ORDERED: SODIUM CHLORIDE 0.9% 1000ML 1,000 ML IV SCH ×3 (21:15→23:11)
[2019-12-26] MEDS ORDERED: cefTRIAXone SODIUM 2,000 MG/70 ML BAG IV STA (21:17)
--- NOTE | 2019-12-26 21:24 | Emergency Department Note ---
History of Present Illness General Chief complaint: Illness Stated complaint: FEVER, COLD CHILIS, MUSCLE PAIN Time Seen by Provider: 12/26/19 20:58 Source: patient and family ( who is at the bedside) Mode of arrival: ambulatory Limitations: no limitations History of Present Illness Maximum Pain Intensity: 10 This patient is a 34-year-old male who comes in after feeling achy and flulike since yesterday. He had T-max of 101.8. He says he is been sweaty and achy all over he vomited once no diarrhea. He has had a mild headache intermittently but nothing severe no neck pain or stiffness. He did notice a tick bite about 2 weeks ago and saw his doctor yesterday and started on doxycycline he is only had 2 dosage. He denies any rash or bull's-eye rash. He adamantly denies that he is been exposed to COVID and even when I suggest testing and he declines this initially. 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 He is concerned as white count could be elevated. No dysuria hematuria. No significant abdominal pain. Home Medications Home Medications Medication Instructions Recorded Confirmed Type ibuprofen [Motrin IB] 400 mg PO Q6H PRN 06/29/19 12/26/19 History bupropion HCl [Wellbutrin SR] 100 mg PO BID 11/07/19 12/26/19 History buspirone 15 mg PO TID 11/07/19 12/26/19 History hydroxyzine pamoate [Vistaril] 50 mg PO TID 11/07/19 12/26/19 History hydrocodone-acetaminophen 1 - 2 tab PO UD PRN 12/23/19 12/26/19 History doxycycline hyclate 100 mg PO BID 12/26/19 12/26/19 History omeprazole 20 mg PO DAILY 12/26/19 12/26/19 History prazosin [Minipress] 2 mg PO HS 12/26/19 12/26/19 History Allergies Allergy/AdvReac Type Severity Reaction Status Date / Time Penicillins Allergy Intermediate hives Verified 12/26/19 21:55 cyclobenzaprine AdvReac Mild dizzy, Verified 12/26/19 21:55 drunk feeling Past Med/Surg History Medical History GERD (gastroesophageal reflux disease) (Chronic) Headache disorder (Chronic) History of renal colic (Chronic) Tobacco use disorder 1 pack every 3 days Surgical History History of splenectomy (Chronic) Social History Preferred Language: Amharic Communication Ability: Effective Blood Bank Laboratory Technologist Required: No Beliefs That Will Affect Care: None marital status: Current Living Situation: Family current occupational status: employed Feels Safe at Home: Yes Smoking Status: Current every day smoker Tobacco Type: cigarettes ; Cigarettes Per Day: 7 ; Second Hand Exposure: No ; Hx Alcohol Use: No Hx Substance Use: No Review of Systems A total of 10 systems reviewed and were otherwise negative Physical Exam Vital Signs Vital Signs - 24 hr 12/26/19 20:39 12/26/19 21:10 12/26/19 21:37 Temperature 37.5 C Temperature Source Oral Pulse Rate 117 H 109 H Pulse Rate from SpO2 Sensor 111 H Respiratory Rate 20 23 Respiratory Effort / Characteristics Non-Labored Spontaneous Respiratory Depth Normal Blood Pressure 121/77 99/75 L Blood Pressure Mean 91 80 Pulse Oximetry 99 98 Oxygen Delivery Method Room Air Room Air Sepsis Recent Fever Within 48 Hours No Sepsis New/Unexplained Change in Mental Status No Sepsis Action Taken by Nursing No Action Required 12/26/19 21:46 12/26/19 22:00 12/26/19 22:30 Temperature Temperature Source Pulse Rate 103 H 99 H 103 H Pulse Rate from SpO2 Sensor 104 H 99 H 102 H Respiratory Rate 26 H 21 20 Respiratory Effort / Characteristics Respiratory Depth Blood Pressure 101/69 124/66 Blood Pressure Mean 81 76 Pulse Oximetry 99 100 97 Oxygen Delivery Method Sepsis Recent Fever Within 48 Hours Sepsis New/Unexplained Change in Mental Status Sepsis Action Taken by Nursing 12/26/19 23:00 12/26/19 23:22 Temperature Temperature Source Pulse Rate 102 H 93 H Pulse Rate from SpO2 Sensor 101 H 95 H Respiratory Rate 33 H 20 Respiratory Effort / Characteristics Respiratory Depth Blood Pressure 138/81 Blood Pressure Mean 94 Pulse Oximetry 98 97 Oxygen Delivery Method Room Air Room Air Sepsis Recent Fever Within 48 Hours Sepsis New/Unexplained Change in Mental Status Sepsis Action Taken by Nursing General: Well developed well nourished mildly anxious but otherwise in no acute distress, breathing comfortably on room air. Normal speech HEENT: Normal cephalic atraumatic. Pupils are equal round and reactive to light. Extraocular movements are intact. Oropharynx is pink with moist mucous membranes. No swelling of the mouth lips or tongue. Neck: Supple with a midline trachea. No meningeal signs or stiffness, no JVD or bruits. No Stridor. Neck is freely mobile. Negative Kernig's and Brudzinski sign. Chest: Clear to auscultation bilaterally. No wheezes or rhonchi. No increased work of breathing. Heart: Regular rate and rhythm without murmurs or gallops. Abdomen: Soft nontender, nondistended without rebound guarding or rigidity. Extremities: No cyanosis clubbing or edema. No calf tenderness or assymetry Spine/Back. Non tender to palpation. No CVA tenderness Skin: Good turgor without rashes. Neurologic exam: Cranial nerves two through 12 are intact. Motor and sensation are intact and symmetrical throughout. Course Administered Medications Sodium Chloride (Nss 1000ml) 1,000 mls @ 600 mls/hr IV .Q1H40M TRENT Stop: 12/27/19 00:10 Last Infusion: 12/26/19 23:35 Dose: 0 mls/hr Documented by: [id number] Admin: 12/26/19 22:55 Dose: 999 mls/hr Documented by: [id number] Discontinued Medications Sodium Chloride (Nss 1000ml) 1,000 mls @ 999 mls/hr IV .Q1H1M TRENT Stop: 12/26/19 22:11 Last Infusion: 12/26/19 22:27 Dose: 0 mls/hr Documented by: [id number] Admin: 12/26/19 21:38 Dose: 999 mls/hr Documented by: [id number] Sodium Chloride (Nss 1000ml) 1,000 mls @ 999 mls/hr IV .Q1H1M TRENT Stop: 12/26/19 23:10 Last Infusion: 12/26/19 22:50 Dose: 0 mls/hr Documented by: [id number] Admin: 12/26/19 21:38 Dose: 999 mls/hr Documented by: [id number] Ceftriaxone Sodium (Rocephin) 2,000 mg in 70 mls @ 140 mls/hr IV NOW [facility] Stop: 12/26/19 21:46 Last Infusion: 12/26/19 23:01 Dose: 0 mls/hr Documented by: [id number] Admin: 12/26/19 22:26 Dose: 140 mls/hr Documented by: [id number] Magnesium Sulfate/Dextrose (Magnesium Sulfate / D5w) 1 gm in 100 mls @ 100 mls/hr IV NOW STA Stop: 12/26/19 23:19 Last Admin: 12/26/19 23:01 Dose: 100 mls/hr Documented by: [id number] Ketorolac Tromethamine (Toradol) 30 mg IV NOW ONE Stop: 12/26/19 21:55 Last Admin: 12/26/19 22:26 Dose: 30 mg Documented by: [id number] Potassium Chloride (Klor-Con M10) 40 meq PO NOW STA Stop: 12/26/19 22:21 Last Admin: 12/26/19 22:55 Dose: 40 meq Documented by: [id number] Critical Care Time Critical Care Time: Yes Total Critical Care Time: 35 I have personally spent liliane yu 35 minutes of critical care time in the direct management of this patient. This includes bedside care, interpretation of diagnostic studies, and testing, discussion with consultants, patient, and family members, and other required patient management activities. This 35 minutes is in excess of all separately billable procedures. Medical Decision Making Differential Diagnosis Sepsis, Lyme disease, anaplasmosis, electrolyte or metabolic abnormality, COVID, viral syndrome, meningitis, cardiac disease, electrolyte or metabolic abnormality Medical Records Attestation: I reviewed the patient's medical records. Home Medications Current Medication List: was personally reviewed by me Laboratory Data Attestation: I reviewed the patient's lab results. Result diagrams: 12/26/19 21:29 12/26/19 21:29 Lab Results 12/26/19 12/26/19 12/26/19 Range/Units 21:29 21:29 21:29 WBC 10.31 (4.8-10.8) K/uL RBC 4.88 (4.7-6.1) M/uL Hgb 14.8 (14.0-18.0) g/dL Hct 44.4 (42-52) % MCV 91.0 (80-100) fL MCH 30.3 (25-34) pg MCHC 33.3 (32-36) g/dL RDW Std Deviation 47.3 H (36.4-46.3) fL RDW Coeff of Jayson 14.1 (11.5-14.5) % Plt Count 423 H (130-400) K/uL MPV 9.6 (7.4-10.4) fL Immature Gran % (Auto) 0.2 % Neut % (Auto) 84.0 % Lymph % (Auto) 9.7 % [place] % (Auto) 5.9 % Eos % (Auto) 0.0 % Baso % (Auto) 0.2 % Neut # (Auto) 8.66 H (1.4-6.5) K/uL Lymph # (Auto) 1.00 L (1.2-3.4) K/uL [place] # (Auto) 0.61 H (0.11-0.59) K/uL Eos # (Auto) 0.00 (0-0.5) K/uL Baso # (Auto) 0.02 (0-0.2) K/uL Immature Gran # (Auto) 0.02 (0.00-0.02) K/uL PT 12.0 (9.0-12.0) Seconds INR 1.1 (0.9-1.1) APTT 31.4 H (21.0-31.0) Seconds PTT Ratio 1.1 Sodium 136 (136-145) mmol/L Potassium 3.2 L (3.5-5.1) mmol/L Chloride 104 (98-107) mmol/L Carbon Dioxide 25 (21-32) mmol/L Anion Gap 7.0 (3-11) BUN 9 (7-18) mg/dl Creatinine 1.10 (0.6-1.4) mg/dl Est Cr Clr Drug Dosing 112.1 ml/min Est GFR ( Amer) 102.4 Est GFR (Non-Af Amer) 88.4 BUN/Creatinine Ratio 8.2 L (10-20) Glucose 109 H (70-99) mg/dl Lactate (0.4-2.0) mmol/L Calcium 8.9 (8.5-10.1) mg/dl Magnesium 1.7 L (1.8-2.4) mg/dl Total Bilirubin 0.3 (0.2-1) mg/dl AST 20 (15-37) U/L ALT 29 (12-78) U/L Alkaline Phosphatase 60 (45-117) U/L Total Protein 7.6 (6.4-8.2) gm/dl Albumin 3.8 (3.4-5.0) gm/dl Globulin 3.8 (2.5-4.0) gm/dl Albumin/Globulin Ratio 1.0 (0.9-2) Procalcitonin (0-0.5) ng/ml Urine Color Urine Appearance (Clear) Urine pH (4.5-7.5) Ur Specific [place] (1.000-1.030) Urine Protein (Negative) Urine Glucose (UA) (Negative) Urine Ketones (Negative) Urine Blood (Negative) Urine Nitrite (Negative) Urine Bilirubin (Negative) Urine Urobilinogen (Negative) Ur Leukocyte Esterase (Negative) Urine WBC (Auto) (0-5) /hpf Urine RBC (Auto) (0-4) /hpf U Hyaline Cast (Auto) (0-5) /lpf U Epithel Cells (Auto) (0-5) /lpf Urine Bacteria (Auto) (Negative) Anaplasma Smear See Comment Lyme Disease IgG Ab (Negative) Lyme Disease IgM Ab (Negative) 12/26/19 12/26/19 12/26/19 Range/Units 21:29 21:29 22:30 WBC (4.8-10.8) K/uL RBC (4.7-6.1) M/uL Hgb (14.0-18.0) g/dL Hct (42-52) % MCV (80-100) fL MCH (25-34) pg MCHC (32-36) g/dL RDW Std Deviation (36.4-46.3) fL RDW Coeff of Jayson (11.5-14.5) % Plt Count (130-400) K/uL MPV (7.4-10.4) fL Immature Gran % (Auto) % Neut % (Auto) % Lymph % (Auto) % [place] % (Auto) % Eos % (Auto) % Baso % (Auto) % Neut # (Auto) (1.4-6.5) K/uL Lymph # (Auto) (1.2-3.4) K/uL [place] # (Auto) (0.11-0.59) K/uL Eos # (Auto) (0-0.5) K/uL Baso # (Auto) (0-0.2) K/uL Immature Gran # (Auto) (0.00-0.02) K/uL PT (9.0-12.0) Seconds INR (0.9-1.1) APTT (21.0-31.0) Seconds PTT Ratio Sodium (136-145) mmol/L Potassium (3.5-5.1) mmol/L Chloride (98-107) mmol/L Carbon Dioxide (21-32) mmol/L Anion Gap (3-11) BUN (7-18) mg/dl Creatinine (0.6-1.4) mg/dl Est Cr Clr Drug Dosing ml/min Est GFR ( Amer) Est GFR (Non-Af Amer) BUN/Creatinine Ratio (10-20) Glucose (70-99) mg/dl Lactate 2.2 H* (0.4-2.0) mmol/L Calcium (8.5-10.1) mg/dl Magnesium (1.8-2.4) mg/dl Total Bilirubin (0.2-1) mg/dl AST (15-37) U/L ALT (12-78) U/L Alkaline Phosphatase (45-117) U/L Total Protein (6.4-8.2) gm/dl Albumin (3.4-5.0) gm/dl Globulin (2.5-4.0) gm/dl Albumin/Globulin Ratio (0.9-2) Procalcitonin 0.58 H (0-0.5) ng/ml Urine Color Yellow Urine Appearance Clear (Clear) Urine pH 7.0 (4.5-7.5) Ur Specific [place] 1.022 (1.000-1.030) Urine Protein Trace H (Negative) Urine Glucose (UA) Negative (Negative) Urine Ketones 1+ H (Negative) Urine Blood 1+ H (Negative) Urine Nitrite Negative (Negative) Urine Bilirubin Negative (Negative) Urine Urobilinogen Negative (Negative) Ur Leukocyte Esterase Negative (Negative) Urine WBC (Auto) 1-5 (0-5) /hpf Urine RBC (Auto) 10-30 H (0-4) /hpf U Hyaline Cast (Auto) 1-5 (0-5) /lpf U Epithel Cells (Auto) 5-10 H (0-5) /lpf Urine Bacteria (Auto) Negative (Negative) Anaplasma Smear Lyme Disease IgG Ab Negative (Negative) Lyme Disease IgM Ab Negative (Negative) Imaging Data Attestation: I personally reviewed and interpreted this imaging study as follows: My Impression: Chest x-ray: No acute infiltrate, failure, pneumothorax seen ECG Data Attestation: I personally reviewed and interpreted this ECG as follows: Indication: + weakness Rate (beats per minute): 102 Rhythm: + sinus tachycardia ECG Intervals/blocks: + Normal QRS, + Normal QT and + Normal [place] ECG [place]: + Normal ECG ST segments: + Normal ST segments ECG Findings: no PACs and no PVCs Comparison ECG Date: from (01/20/2019) Change: no significant change Blood Pressure Blood Pressure Findings: Normal blood pressure Blood Pressure Disposition: did not require urgent referral MDM Narrative This patient comes in as described above he has had achiness and flulike symptoms since yesterday. He is nontoxic and non-lethargic and not ill- appearing however I am concerned that he does have a history of asplenia. He would certainly be at risk for infection in light of this I did order a sepsis work-up and ordered him to have through 30 cc/kg of fluids. His ideal body weight is 86.3 kg and based on this, I did order 2600 cc of normal saline which was just over 30 cc/kg IV. Also reviewed his old records, he has had Rocephin before I started with 2 g Rocephin IV. He is had multiple blood tests including cultures. I also ordered tick borne illness work-up as he had a recent tick bite. Clinically he does not appear to be toxic or lethargic and has no meningeal signs or stiffness. Chest x-ray was also ordered. He was reassessed frequently. His white count is not elevated 10. Lactic acid is mildly elevated at 2.2. He has responded well clinically to the fluids and his heart rate came down significantly. He has normal electrolytes with exception of mildly low potassium which was replenished p.o. as well as mildly low magnesium which was replenished with IV magnesium. He does not appear to have pneumonia. Clinically I do not suspect meningitis. This could be tickborne illness although his labs do not suggest typical findings for that, it could be viral illness. His Lyme test was negative anaplasmosis smear was negative with a PCR pending. His urinalysis was unremarkable for UTI. He has refused COVID testing. He is responded well to the fluids and his blood pressure came up significantly. Given his history of having his splinter removed I do think he needs to be admitted for observation/further work-up. I did discuss the case with Dr. Raines. Continuous cardiac monitoring: An order was placed for continuous cardiac monitoring. Due to concern for sepsis, he placed on the continuous cardiac monitoring. He was noted to be in sinus tachycardia with a rate of 110. Impression & Plan Sepsis, Myalgia, Tick bite, History of splenectomy, Hypomagnesemia, Acute hypokalemia Discharge Plan Visit Data Chief Complaint: Illness Stated Complaint: FEVER, COLD CHILIS, MUSCLE PAIN ED Provider: Jose Miguel Gardner Discharge Problem: Sepsis, Myalgia, Tick bite, History of splenectomy, Hypomagnesemia, Acute hypokalemia Forms Stand Alone Forms: [facility] Prescriptions Prescriptions: No Action ibuprofen [Motrin IB] 200 mg Capsule 400 mg PO Q6H PRN (Reason: Pain) RF: 0 hydrocodone-acetaminophen 7.5-325 mg Tablet 1 - 2 tab PO UD PRN (Reason: onset migraine) RF: 0 hydroxyzine pamoate [Vistaril] 50 mg capsule 50 mg PO TID RF: 0 bupropion HCl [Wellbutrin SR] 100 mg tablet sustained-release 12 hr 100 mg PO BID RF: 0 buspirone 15 mg tablet 15 mg PO TID RF: 0 doxycycline hyclate 100 mg capsule 100 mg PO BID RF: 0 prazosin [Minipress] 2 mg capsule 2 mg PO HS RF: 0 omeprazole 20 mg capsule,delayed release(DR/EC) 20 mg PO DAILY RF: 0 Discharge Problem: Sepsis Qualifiers: Sepsis type: sepsis due to unspecified organism Sepsis acute organ dysfunction status: without acute organ dysfunction Qualified Code(s): A41.9 - Sepsis, unspecified organism Tick bite Qualifiers: Encounter type: initial encounter Qualified Code(s): W57.XXXA - Bitten or stung by nonvenomous insect and other nonvenomous arthropods, initial encounter
[2019-12-26 21:43] LABS: Basophils # (auto) 0.02 K/uL (0-0.2); Basophils % (auto) 0.2 %; Hematocrit (blood only) 44.4 % (42-52); Hemoglobin 14.8 g/dL (14.0-18.0); Immature Granulocytes # (auto) 0.02 K/uL (0.00-0.02); Immature Granulocytes % (auto) 0.2 %; Lymphocytes % (auto) 9.7 %; Mean Corpuscular Hemoglobin 30.3 pg (25-34); Mean Corpuscular Hgb Conc 33.3 g/dL (32-36); Mean Platelet Volume 9.6 fL (7.4-10.4); Monocytes # (auto) 0.61 K/uL (0.11-0.59); Monocytes % (auto) 5.9 %; Neutrophils # (auto) 8.66 K/uL (1.4-6.5); Platelet Count 423 K/uL (130-400); RDW Coefficient of Variation 14.1 % (11.5-14.5); RDW Standard Deviation 47.3 fL (36.4-46.3); Red Blood Count 4.88 M/uL (4.7-6.1); White Blood Count 10.31 K/uL (4.8-10.8)
[2019-12-26] MEDS ORDERED: KETOROLAC 30 MG/ML VIAL IV ONE (21:54)
[2019-12-26 21:57] LABS: INR 1.1 (0.9-1.1); Partial Thromboplastin Ratio 1.1; Partial Thromboplastin Time 31.4 Seconds (21.0-31.0)
[2019-12-26 22:01] LABS: Albumin Level 3.8 gm/dl (3.4-5.0); BUN Creatinine Ratio 8.2 (10-20); Calcium 8.9 mg/dl (8.5-10.1); Creatinine Clr Calc Pharmacy 112.1 ml/min; Est GFR (African American) 102.4; Est GFR (Non-African American) 88.4; Magnesium 1.7 mg/dl (1.8-2.4); Potassium 3.2 mmol/L (3.5-5.1)
[2019-12-26 22:03] LABS: Bilirubin,Total 0.3 mg/dl (0.2-1); Globulin 3.8 gm/dl (2.5-4.0); Total Protein 7.6 gm/dl (6.4-8.2)
[2019-12-26] MEDS ORDERED: MAGNESIUM SULFATE / D5W 1 GM/100 ML BAG IV STA (22:20)
[2019-12-26] MEDS ORDERED: POTASSIUM CHLORIDE 10 MEQ TABCR PO STA (22:20)
[2019-12-26 22:24] LABS: Procalcitonin 0.58 ng/ml (0-0.5)
[2019-12-26 22:49] LABS: Appearance Urine Clear (Clear); Bacteria Urine Automated Negative (Negative); Bilirubin Urine Negative (Negative); Blood Urine 1+ (Negative); Color Urine Yellow; Glucose Urine UA Negative (Negative); Ketones Urine 1+ (Negative); Leukocyte Esterase Urine Negative (Negative); Nitrite Urine Negative (Negative); Protein Urine Trace (Negative); Specific Gravity Urine 1.022 (1.000-1.030); Urobilinogen Urine Negative (Negative)
[2019-12-26 22:57] LABS: Lyme Ab IgM w/WB Rflx Negative (Negative)
[2019-12-26 22:58] LABS: Lyme Ab IgG w/WB Rflx Negative (Negative)
[2019-12-27] MEDS ORDERED: HYDROCODONE/ACETAMINOPHEN 7.5/325MG TAB PO STA (00:10)
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
[2019-12-27] MEDS ORDERED: VANCOMYCIN CONSULT ACTIVE PRN ×2 (00:54)
[2019-12-27] MEDS ORDERED: ACETAMINOPHEN 325 MG TAB PO PRN (00:54)
[2019-12-27] MEDS ORDERED: POLYETHYLENE (MIRALAX) 17 GM PACK PO PRN (00:54)
[2019-12-27] MEDS ORDERED: ALUMINUM/MAGNESIUM SUSP 30 ML UDC PO PRN (00:54)
[2019-12-27] MEDS ORDERED: ONDANSETRON INJ 2 MG/ML 2 ML VIAL IV PRN (00:54)
[2019-12-27] MEDS ORDERED: VANCOMYCIN HCL 2,250 MG in SODIUM CHLORIDE 0.9% 500 ML IV ONE (01:30)
[2019-12-27] MEDS: IBUPROFEN 200 MG TAB PO PRN ×2 (02:17→18:09)
[2019-12-27] MEDS: DOXYCYCLINE HYCLATE 100 MG in DEXTROSE 5% 100 ML IV SCH ×2 (02:18→14:06)
--- NOTE | 2019-12-27 04:31 | Pharmacy Report ---
Pharmacy Abx Initial Consult - Date of Service December 27, 2019 - Pharmacy Dosing Scope Date of Consult: 12/27/19 Consultation requested by: Dr. Gaines Pharmacy is consulted to initiate Vancomycin IV dosing therapy, order appropriate labs and adjust drug dose/frequency. - Subjective The patient is a 34 year old M admitted on 12/26/19 23:57 with headache, fever and chills and recent tick bite. Dr. Gaines is treating empirically for asplenic fever with Vancomycin, Doxycycline and Rocephin. Pharmacy will dose Vancomycin per protocol. - Objective Height: 6 ft 2 in Weight: 90.6 kg Vital Signs (Past 12hrs): Vital Signs Temp Pulse Resp BP Pulse Ox 12/27/19 00:00 109 H 20 130/96 97 12/26/19 23:30 91 H 21 131/84 97 12/26/19 23:22 93 H 20 138/81 97 12/26/19 23:00 102 H 33 H 98 12/26/19 22:30 103 H 20 124/66 97 12/26/19 22:00 99 H 21 101/69 100 12/26/19 21:46 103 H 26 H 99 12/26/19 21:37 109 H 23 99/75 L 98 12/26/19 20:39 37.5 C 117 H 20 121/77 99 Lab Results (24hrs): Laboratory Tests (24 Hours) 12/26/19 12/26/19 12/26/19 21:29 21:29 21:29 WBC 10.31 Neut # (Auto) 8.66 H Creatinine 1.10 Est Cr Clr Drug Dosing 112.1 Procalcitonin 0.58 H Micro Results: 12/26/19 21:46 Aerobic Blood Culture - Pending Blood Anaerobic Blood Culture - Pending 12/26/19 21:29 Aerobic Blood Culture - Pending Blood Anaerobic Blood Culture - Pending - Risk Factors for Resistance = - Assessment & Plan Assessment 34 year old M with asplenic fever, recent tick bite Plan Vancomycin IV * Estimated PK Parameters: Vd 0.7 L/kg, Gerardo 0.097 hr-1, t1/2 7.14 hr * Loading dose: 2250 mg (~24 mg/kg) * Maintenance dose: 1500 mg IV (~16 mg/kg) every 8 hours (per AUC nomogram) * Goal trough level : 15-20 mcg/mL * Trough level ordered prior to 1000 dose on 12/28/19 Pharmacy will continue to follow and will adjust dose/frequency as necessary. Thank you.
[2019-12-27 06:28] LABS: Est GFR (African American) 147.4; Est GFR (Non-African American) 127.1
[2019-12-27] MEDS: HYDROCODONE/ACETAMINOPHEN 7.5/325MG TAB PO PRN ×3 (07:35→20:09)
[2019-12-27] MEDS ORDERED: PNEUMOCOCCAL ADMINISTRATION CHARGE ONE (08:00)
[2019-12-27] MEDS ORDERED: PNEUMOCOCCAL POLYSACCHARIDES 25 MCG/0.5 ML VIAL/SYR IM ONE (08:00)
--- NOTE | 2019-12-27 08:29 | CT Scan Report ---
CT OF THE ABDOMEN AND PELVIS WITHOUT CONTRAST CLINICAL HISTORY: Abdominal Pain and hematuria. COMPARISON STUDY: CT of the abdomen and pelvis January 20, 2019. TECHNIQUE: Axial images of the abdomen and pelvis were obtained without IV contrast. Images were revi ewed in the axial, sagittal, and coronal planes. Automated exposure control was utilized for the vane dy. A dose lowering technique was utilized adhering to the principles of ALARA. FINDINGS: Lung bases are unremarkable. There is a 2 mm calculus within the left kidney. There are no ureteral calculi. There is no hydronephrosis or hydroureter. Evaluation of the remainder of the abdom en and pelvis is suboptimal on this unenhanced examination. The spleen is surgically absent. There ar e several splenules. Unenhanced images of the liver, adrenal glands and pancreas are unremarkable. Th ere is no peripancreatic or pericholecystic infiltration. There is no evidence for a bowel obstructio n. The appendix is normal. There is no ascites or lymphadenopathy. Peritoneal nodules within the pelv is may reflect splenules. These are unchanged. There are no suspicious osseous lesions. No biliary or pancreatic ductal dilatation is present. IMPRESSION: 1. No ureteral calculi or hydronephrosis. Punctate left renal calculus. 2. No acute process within the abdomen or pelvis on unenhanced exam. Normal appendix. No bowel obstru ction. ACT 112: Negative or not required by law. Electronically signed by: Harry Webb M.D. 12/27/2019 8:27 AM
--- NOTE | 2019-12-27 09:08 | Hospitalist Progress Note ---
Date of Service December 27, 2019 Assessment & Plan (1) Sepsis: source uncertain. patient finally verbally consented to rapid testing today - COVID-19 was NEGATIVE. Blood cx's negative to date. CXR without pneumonia. u/a not suggestive of UTI. CT abd/pelvis without source. Lyme IgM/IgG negative. Anaplasmosis smear negative. await blood cx's to ensure no bacteremia. consider [employer] respiratory panel. await Anaplasmosis DNA - doxy 100mg BID in meantime given recent tick-bite. This could be early lyme disease still despite negative Ab testing - doxy will cover. cont rocephin/vanco empirically until blood cx's return negative x 48 hours. patient c/o headache and neck discomfort but NO nuccal rigidity and NO tenderness to palpation along c-spine, t-spine, or l-spine to suggest discitis/epidural abscess. would not pursue LP at this time - no meningismus. (2) Tick bite: at risk of Lyme and Anaplasmosis. doxy will cover both. if all other work-up is negative would send home with course of doxy for minimum 14 days. await anaplasmosis DNA (likely won't return until after discharge). babesiosis sent by admitting team. consider repeat lyme testing in 10-14 days to see if any seroconversion. (3) Hypomagnesemia: replaced repeat level AM (4) Acute hypokalemia: replaced repeat level AM (5) Headache disorder: h/o migraines states nothing works except narcotic pain meds try to avoid such for now given rebound phenomenon try toradol - this will help muscle aches as well (6) GERD (gastroesophageal reflux disease): cont PPI (7) Tobacco use disorder: offer nicoderm if desired (8) History of splenectomy: noted should inquire to ensure UTD with pneumovax, H flu, and meningitis vaccines yearly flu shot as well (9) DVT prophylaxis: lovenox 40mg daily Admission and Anticipated Discharge Date Admission Date: December 26, 2019 Subjective highest temp 101 at home before admission. no recorded fever since then. no sore throat or runny nose. +headache with mild neck discomfort (but able to move neck freely). emesis x 1 only. no diarrhea. left-sided abdomen continues. no cough no sick contacts body aches present Was incarcerated at [facility] Jul 25 - to beginning of October. Living with girlfriend and daughter (8yo) since then. they are well and without any illness. No recent travel. tick bite under left arm -- Saturday of this week pulled it off; was on for several days, maybe a week? Review of Systems Constitutional: + fever, + chills, + fatigue and + anorexia Ear, Nose, Mouth, Throat: no nasal congestion, no nasal discharge and no sore throat Respiratory: no cough and no dyspnea Cardiovascular: no chest pain Gastrointestinal: + abdominal pain, + nausea and + vomiting; no diarrhea/loose stools Genitourinary: no dysuria Musculoskeletal: + myalgia; no joint pain Integumentary: no rash Physical Exam Constitutional: well developed, well nourished and + ill appearing (but nontoxic ); no acute distress and no altered mental status Eyes: + anicteric sclerae ENMT: external ear and nose normal, oropharynx normal Neck: negative Brudzinski's sign, negative Kernig's sign and no nuchal rigidity Respiratory: normal respiratory effort, lungs clear to auscultation Cardiovascular: Rate/Rhythm: regular rate and regular rhythm Heart Sounds: normal S1 and normal S2; no murmur Vessels: posterior tibial pulses present and dorsalis pedis pulses present; no JVD Extremities: no edema Gastrointestinal (Abdomen): normal bowel sounds, soft, nontender, no hepatosplenomegaly Musculoskeletal: no tenderness to palpation along cervical spine, thoracic spine or lumbar spine Skin: no rashes, warm and dry Lymphatic: no cervical lymphadenopathy Results & Data Results & Data ([facility]) Vital Signs (Past 12 Hours) Vital Signs Temp Pulse Pulse Resp BP BP Pulse Ox 12/27/19 07:43 36.6 C 79 18 110/74 97 12/27/19 00:00 109 H 20 130/96 97 12/26/19 23:30 91 H 21 131/84 97 12/26/19 23:22 93 H 20 138/81 97 12/26/19 23:00 102 H 33 H 98 12/26/19 22:30 103 H 20 124/66 97 12/26/19 22:00 99 H 21 101/69 100 12/26/19 21:46 103 H 26 H 99 12/26/19 21:37 109 H 23 99/75 L 98 Laboratory Results Laboratory Results - last 24 hr 12/26/19 12/26/19 12/26/19 21:29 21:29 21:29 WBC 10.31 RBC 4.88 Hgb 14.8 Hct 44.4 MCV 91.0 MCH 30.3 MCHC 33.3 RDW Std Deviation 47.3 H RDW Coeff of Jayson 14.1 Plt Count 423 H MPV 9.6 Immature Gran % (Auto) 0.2 Neut % (Auto) 84.0 Lymph % (Auto) 9.7 [place] % (Auto) 5.9 Eos % (Auto) 0.0 Baso % (Auto) 0.2 Neut # (Auto) 8.66 H Lymph # (Auto) 1.00 L [place] # (Auto) 0.61 H Eos # (Auto) 0.00 Baso # (Auto) 0.02 Immature Gran # (Auto) 0.02 PT 12.0 INR 1.1 APTT 31.4 H PTT Ratio 1.1 Sodium 136 Potassium 3.2 L Chloride 104 Carbon Dioxide 25 Anion Gap 7.0 BUN 9 Creatinine 1.10 Est Cr Clr Drug Dosing 112.1 Est GFR ( Amer) 102.4 Est GFR (Non-Af Amer) 88.4 BUN/Creatinine Ratio 8.2 L Glucose 109 H Lactate Calcium 8.9 Magnesium 1.7 L Total Bilirubin 0.3 AST 20 ALT 29 Alkaline Phosphatase 60 Total Protein 7.6 Albumin 3.8 Globulin 3.8 Albumin/Globulin Ratio 1.0 Procalcitonin Urine Color Urine Appearance Urine pH Ur Specific [place] Urine Protein Urine Glucose (UA) Urine Ketones Urine Blood Urine Nitrite Urine Bilirubin Urine Urobilinogen Ur Leukocyte Esterase Urine WBC (Auto) Urine RBC (Auto) U Hyaline Cast (Auto) U Epithel Cells (Auto) Urine Bacteria (Auto) Anaplasma Smear See Comment A. phagocytophilum DNA Babesia microti IgG Ab Babesia microti IgM Ab Babesia Interpretation Lyme Disease IgG Ab Lyme Disease IgM Ab COVID-19 PCR 12/26/19 12/26/19 12/26/19 21:29 21:29 21:29 WBC RBC Hgb Hct MCV MCH MCHC RDW Std Deviation RDW Coeff of [place] Plt Count MPV Immature Gran % (Auto) Neut % (Auto) Lymph % (Auto) [place] % (Auto) Eos % (Auto) Baso % (Auto) Neut # (Auto) Lymph # (Auto) [place] # (Auto) Eos # (Auto) Baso # (Auto) Immature Gran # (Auto) PT INR APTT PTT Ratio Sodium Potassium Chloride Carbon Dioxide Anion Gap BUN Creatinine Est Cr Clr Drug Dosing Est GFR ( Amer) Est GFR (Non-Af Amer) BUN/Creatinine Ratio Glucose Lactate 2.2 H* Calcium Magnesium Total Bilirubin AST ALT Alkaline Phosphatase Total Protein Albumin Globulin Albumin/Globulin Ratio Procalcitonin 0.58 H Urine Color Urine Appearance Urine pH Ur Specific [place] Urine Protein Urine Glucose (UA) Urine Ketones Urine Blood Urine Nitrite Urine Bilirubin Urine Urobilinogen Ur Leukocyte Esterase Urine WBC (Auto) Urine RBC (Auto) U Hyaline Cast (Auto) U Epithel Cells (Auto) Urine Bacteria (Auto) Anaplasma Smear A. phagocytophilum DNA Pending Babesia microti IgG Ab Babesia microti IgM Ab Babesia Interpretation Lyme Disease IgG Ab Negative Lyme Disease IgM Ab Negative COVID-19 PCR 12/26/19 12/26/19 12/27/19 22:30 23:55 05:25 WBC RBC Hgb Hct MCV MCH MCHC RDW Std Deviation RDW Coeff of [place] Plt Count MPV Immature Gran % (Auto) Neut % (Auto) Lymph % (Auto) [place] % (Auto) Eos % (Auto) Baso % (Auto) Neut # (Auto) Lymph # (Auto) [place] # (Auto) Eos # (Auto) Baso # (Auto) Immature Gran # (Auto) PT INR APTT PTT Ratio Sodium Potassium Chloride Carbon Dioxide Anion Gap BUN Creatinine Est Cr Clr Drug Dosing Est GFR ( Amer) Est GFR (Non-Af Amer) BUN/Creatinine Ratio Glucose Lactate 0.8 Calcium Magnesium Total Bilirubin AST ALT Alkaline Phosphatase Total Protein Albumin Globulin Albumin/Globulin Ratio Procalcitonin Urine Color Yellow Urine Appearance Clear Urine pH 7.0 Ur Specific [place] 1.022 Urine Protein Trace H Urine Glucose (UA) Negative Urine Ketones 1+ H Urine Blood 1+ H Urine Nitrite Negative Urine Bilirubin Negative Urine Urobilinogen Negative Ur Leukocyte Esterase Negative Urine WBC (Auto) 1-5 Urine RBC (Auto) 10-30 H U Hyaline Cast (Auto) 1-5 U Epithel Cells (Auto) 5-10 H Urine Bacteria (Auto) Negative Anaplasma Smear A. phagocytophilum DNA Babesia microti IgG Ab Pending Babesia microti IgM Ab Pending Babesia Interpretation Pending Lyme Disease IgG Ab Lyme Disease IgM Ab COVID-19 PCR 12/27/19 12/27/19 05:25 13:10 WBC RBC Hgb Hct MCV MCH MCHC RDW Std Deviation RDW Coeff of [place] Plt Count MPV Immature Gran % (Auto) Neut % (Auto) Lymph % (Auto) [place] % (Auto) Eos % (Auto) Baso % (Auto) Neut # (Auto) Lymph # (Auto) [place] # (Auto) Eos # (Auto) Baso # (Auto) Immature Gran # (Auto) PT INR APTT PTT Ratio Sodium Potassium Chloride Carbon Dioxide Anion Gap BUN Creatinine 0.67 D Est Cr Clr Drug Dosing 184.0 Est GFR ( Amer) 147.4 Est GFR (Non-Af Amer) 127.1 BUN/Creatinine Ratio Glucose Lactate Calcium Magnesium Total Bilirubin AST ALT Alkaline Phosphatase Total Protein Albumin Globulin Albumin/Globulin Ratio Procalcitonin Urine Color Urine Appearance Urine pH Ur Specific [place] Urine Protein Urine Glucose (UA) Urine Ketones Urine Blood Urine Nitrite Urine Bilirubin Urine Urobilinogen Ur Leukocyte Esterase Urine WBC (Auto) Urine RBC (Auto) U Hyaline Cast (Auto) U Epithel Cells (Auto) Urine Bacteria (Auto) Anaplasma Smear A. phagocytophilum DNA Babesia microti IgG Ab Babesia microti IgM Ab Babesia Interpretation Lyme Disease IgG Ab Lyme Disease IgM Ab COVID-19 PCR NEGATIVE Diagnostic Findings blood cx's to date negative PG Care Time/CCT Total # of Minutes Spent Total Time Spent with Patient: Total time spent is greater than 50% in coordination of care (as documented) at patient's floor/unit and/or counseling patient: Coding Level of Care Code 01596 Subseq Hosp Care Lvl 2 Diagnoses Sepsis A41.9 Sepsis acute organ dysfunction status: without acute organ dysfunction Sepsis type: sepsis due to unspecified organism Tick bite W57.XXXA Encounter type: initial encounter Hypomagnesemia E83.42 Acute hypokalemia E87.6 Headache disorder R51 GERD (gastroesophageal reflux disease) K21.9 Esophagitis presence: without esophagitis Tobacco use disorder F17.200 History of splenectomy Z90.81 DVT prophylaxis Z29.9 (1) Sepsis Sepsis acute organ dysfunction status: without acute organ dysfunction Sepsis type: sepsis due to unspecified organism Qualified Code(s): A41.9 - Sepsis, unspecified organism (2) Tick bite Encounter type: initial encounter Qualified Code(s): W57.XXXA - Bitten or stung by nonvenomous insect and other nonvenomous arthropods, initial encounter (3) GERD (gastroesophageal reflux disease) Esophagitis presence: without esophagitis Qualified Code(s): K21.9 - Gastro- esophageal reflux disease without esophagitis
--- NOTE | 2019-12-27 09:30 | XRay Report ---
XR chest 1V portable CLINICAL HISTORY: SEPSIS COMPARISON STUDY: Chest radiograph January 25, 2019. FINDINGS: Lung volumes are normal. Lungs are clear. There is no pneumothorax or pleural effusion. Car diac size is normal. Mediastinal contours are normal. There is no evidence for pulmonary edema. IMPRESSION: No acute cardiopulmonary findings. ACT 112: Negative or not required by law. Electronically signed by: Harry Wbeb M.D. 12/27/2019 9:29 AM
[2019-12-27] MEDS: ENOXAPARIN INJ 40 MG/0.4 ML SYR SQ SCH (10:33)
[2019-12-27] MEDS: BuPROPion SR 100 MG TABCR PO SCH ×2 (10:35→21:03)
[2019-12-27] MEDS: BusPIRone 15 MG TAB PO SCH ×3 (10:35→21:02)
[2019-12-27] MEDS: PANTOprazole 40 MG TAB PO SCH (10:36)
[2019-12-27] MEDS: VANCOMYCIN HCL 1,500 MG in SODIUM CHLORIDE 0.9% 500 ML IV SCH ×2 (10:43→17:40)
[2019-12-27] MEDS ORDERED: ALPRAZolam 0.5 MG TABLET PO STA (11:42)
--- NOTE | 2019-12-27 12:17 | Electrocardiogram Report ---
Test Reason : Blood Pressure : / mmHG Vent. Rate : 102 BPM Atrial Rate : 102 BPM P-R Int : 168 ms QRS Dur : 090 ms QT Int : 318 ms P-R-T Axes : 065 104 062 degrees QTc Int : 414 ms Poor data quality, interpretation may be adversely affected Sinus tachycardia Possible Left atrial enlargement Rightward axis Borderline ECG When compared with ECG of 20-JAN-2019 13:15, No significant change was found Confirmed by Martin Amaya ([id number]) on 12/27/2019 12:17:06 PM Referred By: REFERRED SELF Confirmed By:Martin Amaya
[2019-12-27] MEDS: PRAZOSIN HCL 1 MG CAP PO SCH (21:02)
[2019-12-27] MEDS: POTASSIUM CHLORIDE 20 MEQ TABCR PO SCH (21:02)
[2019-12-27] MEDS: cefTRIAXone SODIUM 2,000 MG in DEXTROSE 5% 50 ML IV SCH (21:03)
--- NOTE | 2019-12-27 22:34 | Billing Data ---
Date of Service December 27, 2019 Coding Level of Care Code 93722 Initial Inpt Care Lvl 2
[2019-12-28] MEDS: DOXYCYCLINE HYCLATE 100 MG in DEXTROSE 5% 100 ML IV SCH ×2 (02:51→13:48)
[2019-12-28] MEDS: VANCOMYCIN HCL 1,500 MG in SODIUM CHLORIDE 0.9% 500 ML IV SCH ×3 (02:51→17:24)
[2019-12-28 06:39] LABS: Creatinine Clr Calc Pharmacy 141.7 ml/min; Est GFR (African American) 132.4; Est GFR (Non-African American) 114.2
[2019-12-28] MEDS: HYDROCODONE/ACETAMINOPHEN 7.5/325MG TAB PO PRN ×2 (07:48→19:44)
[2019-12-28] MEDS: PANTOprazole 40 MG TAB PO SCH (07:51)
[2019-12-28] MEDS: POTASSIUM CHLORIDE 20 MEQ TABCR PO SCH ×2 (07:51→20:20)
[2019-12-28] MEDS: BuPROPion SR 100 MG TABCR PO SCH ×2 (07:51→20:21)
[2019-12-28] MEDS: BusPIRone 15 MG TAB PO SCH ×3 (07:51→20:19)
[2019-12-28] MEDS: ENOXAPARIN INJ 40 MG/0.4 ML SYR SQ SCH (07:53)
[2019-12-28] MEDS ORDERED: VANCOMYCIN TROUGH ONE (09:30)
[2019-12-28 09:34] LABS: Basophils # (auto) 0.03 K/uL (0-0.2); Basophils % (auto) 0.5 %; Eosinophils # (auto) 0.44 K/uL (0-0.5); Hematocrit (blood only) 39.3 % (42-52); Hemoglobin 13.4 g/dL (14.0-18.0); Immature Granulocytes # (auto) 0.02 K/uL (0.00-0.02); Immature Granulocytes % (auto) 0.3 %; Lymphocytes # (auto) 1.51 K/uL (1.2-3.4); Lymphocytes % (auto) 23.9 %; Mean Corpuscular Hemoglobin 30.3 pg (25-34); Mean Corpuscular Hgb Conc 34.1 g/dL (32-36); Mean Corpuscular Volume 88.9 fL (80-100); Mean Platelet Volume 9.6 fL (7.4-10.4); Monocytes % (auto) 12.7 %; Neutrophils # (auto) 3.52 K/uL (1.4-6.5); Neutrophils % (auto) 55.6 %; Platelet Count 336 K/uL (130-400); RDW Coefficient of Variation 14.5 % (11.5-14.5); RDW Standard Deviation 47.6 fL (36.4-46.3); Red Blood Count 4.42 M/uL (4.7-6.1); White Blood Count 6.32 K/uL (4.8-10.8)
[2019-12-28] MEDS ORDERED: SODIUM CHLORIDE 0.9% 1000ML 500 ML IV ONE (09:40)
[2019-12-28 10:24] LABS: BUN Creatinine Ratio 9.4 (10-20); BUN Creatinine Ratio 9.9 (10-20); Calcium 8.2 mg/dl (8.5-10.1); Calcium 8.4 mg/dl (8.5-10.1); Creatinine Clr Calc Pharmacy 160.1 ml/min; Creatinine Clr Calc Pharmacy 164.4 ml/min; Est GFR (African American) 139.2; Est GFR (African American) 140.7; Est GFR (Non-African American) 120.1; Est GFR (Non-African American) 121.4; Magnesium 2.3 mg/dl (1.8-2.4); Potassium 3.8 mmol/L (3.5-5.1)
[2019-12-28 10:34] LABS: Albumin Globulin Ratio 0.9 (0.9-2); Bilirubin,Total 0.3 mg/dl (0.2-1); Globulin 3.5 gm/dl (2.5-4.0); Total Protein 6.5 gm/dl (6.4-8.2)
--- NOTE | 2019-12-28 10:56 | Pharmacy Report ---
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 Planning to continue ceftriaxone/vanco at least 48 hrs, extended if blood cultures/additional source determined. Patient continues to have normal white count and is afebrile. Plan Patient meets criteria for vancomycin AUC dosing nomogram AUC/EDUAR is the preferred PK/PD target for vancomycin Target AUC/EDUAR = 400-600 Trough level of 14.6 mcg/mL is predicted to achieve target AUC/EDUAR AUC guided dosing is effective and associated with decreased risk of nephrotoxicity Pharmacy will continue to follow and will adjust dose/frequency as necessary. Thank you.
--- NOTE | 2019-12-28 15:02 | Hospitalist Progress Note ---
Date of Service December 28, 2019 Assessment & Plan (1) Sepsis: source uncertain. COVID-19 was NEGATIVE. Blood cx's negative to date. CXR without pneumonia. u/a not suggestive of UTI. CT abd/pelvis without source. Lyme IgM/IgG negative. Anaplasmosis smear negative. await blood cx's to ensure no bacteremia. await Anaplasmosis DNA - doxy 100mg BID in meantime given recent tick-bite. This could be early lyme disease still despite negative Ab testing - doxy will cover. cont rocephin/vanco empirically until blood cx's return negative x 48 hours. patient continues to c/o headache and neck discomfort with some stiffness Overall this presentation is very similar to one he had in January last year which was deemed a viral infection after no evidence of bacterial infection. (2) Tick bite: at risk of Lyme and Anaplasmosis. doxy will cover both. if all other work-up is negative would send home with course of doxy for minimum 14 days. await anaplasmosis DNA (likely won't return until after discharge). babesiosis sent by admitting team. consider repeat lyme testing in 10-14 days to see if any seroconversion. (3) Hypomagnesemia: replaced repeat level AM (4) Acute hypokalemia: replaced and resolved (5) Headache disorder: h/o migraines states nothing works except narcotic pain meds try to avoid such for now given rebound phenomenon Continue ibuprofen (6) GERD (gastroesophageal reflux disease): cont PPI (7) Tobacco use disorder: offer nicoderm if desired (8) History of splenectomy: should inquire to ensure UTD with pneumovax, H flu, and meningitis vaccines yearly flu shot as well (9) DVT prophylaxis: Enoxaparin Admission and Anticipated Discharge Date Admission Date: December 26, 2019 Subjective Mr. Dillard feels aches in his joints, sweating such that he is soaking his sheets. His neck feels stiff at the base and into his shoulders. ROS Constitutional: no chills, aches, sweats or fever Respiratory: no sob,cough, sputum, or wheezing Cardiac: no chest pain, palpitations, edema, orthopnea or lightheadedness GI: no abdominal pain, nausea, vomiting, diarrhea or constipation : no dysuria or hesitancy Extremities: see HPI Skin: no rash All other systems reviewed and negative Physical Exam Physical Exam: General: no distress Eyes: normal inspection, PERLL Respiratory: chest non tender, clear to auscultation, normal breath sounds, no respiratory distress, no accessory muscle use Cardiac: regular rate and rhythm, no rub or gallop, no murmur, no edema, no jvd GI/: active bowel sounds, no abd pain or tenderness, soft, non distended Extremities: normal range of motion, normal strength, non tender Neuro/Psych: alert and oriented x 3, normal mood and affect Skin: normal color, dry Results & Data Results & Data ([facility]) Vital Signs (Past 12 Hours) Vital Signs Temp Pulse Resp BP Pulse Ox 12/28/19 13:51 61 16 133/87 12/28/19 08:18 36.7 C 80 18 89/46 L 90 PG Care Time/CCT Total # of Minutes Spent Total Time Spent with Patient: Total time spent is greater than 50% in coordination of care (as documented) at patient's floor/unit and/or counseling patient: Coding Level of Care Code 19178 Subseq Hosp Care Lvl 3 Diagnoses Sepsis A41.9 Sepsis acute organ dysfunction status: without acute organ dysfunction Sepsis type: sepsis due to unspecified organism Tick bite W57.XXXA Encounter type: initial encounter Hypomagnesemia E83.42 Acute hypokalemia E87.6 Headache disorder R51 GERD (gastroesophageal reflux disease) K21.9 Esophagitis presence: without esophagitis Tobacco use disorder F17.200 History of splenectomy Z90.81 DVT prophylaxis Z29.9 (1) Tick bite Encounter type: initial encounter Qualified Code(s): W57.XXXA - Bitten or stung by nonvenomous insect and other nonvenomous arthropods, initial encounter (2) GERD (gastroesophageal reflux disease) Esophagitis presence: without esophagitis Qualified Code(s): K21.9 - Gastro- esophageal reflux disease without esophagitis (3) Sepsis Sepsis acute organ dysfunction status: without acute organ dysfunction Sepsis type: sepsis due to unspecified organism Qualified Code(s): A41.9 - Sepsis, unspecified organism
[2019-12-28] MEDS ORDERED: BACLOFEN 10 MG TAB PO STA (15:23)
[2019-12-28] MEDS ORDERED: HYDROmorphone INJ 0.5 MG/0.5 ML SYR IV STA (15:23)
[2019-12-28] MEDS: cefTRIAXone SODIUM 2,000 MG in DEXTROSE 5% 50 ML IV SCH (20:18)
[2019-12-28] MEDS: PRAZOSIN HCL 1 MG CAP PO SCH (20:20)
[2019-12-29] MEDS: VANCOMYCIN HCL 1,500 MG in SODIUM CHLORIDE 0.9% 500 ML IV SCH (01:35)
[2019-12-29] MEDS: HYDROCODONE/ACETAMINOPHEN 7.5/325MG TAB PO PRN ×2 (01:36→07:53)
[2019-12-29 05:33] LABS: Hematocrit (blood only) 40.3 % (42-52); Hemoglobin 13.4 g/dL (14.0-18.0); Mean Corpuscular Hemoglobin 30.2 pg (25-34); Mean Corpuscular Hgb Conc 33.3 g/dL (32-36); Mean Corpuscular Volume 90.8 fL (80-100); Mean Platelet Volume 9.5 fL (7.4-10.4); Platelet Count 384 K/uL (130-400); RDW Coefficient of Variation 14.7 % (11.5-14.5); RDW Standard Deviation 49.5 fL (36.4-46.3); Red Blood Count 4.44 M/uL (4.7-6.1); White Blood Count 6.04 K/uL (4.8-10.8)
[2019-12-29 06:03] LABS: BUN Creatinine Ratio 8.7 (10-20); Calcium 8.2 mg/dl (8.5-10.1); Creatinine Clr Calc Pharmacy 158.1 ml/min; Est GFR (African American) 138.4; Est GFR (Non-African American) 119.4; Potassium 3.8 mmol/L (3.5-5.1)
[2019-12-29 06:05] LABS: Albumin Globulin Ratio 0.9 (0.9-2); Bilirubin,Total 0.2 mg/dl (0.2-1); Globulin 3.5 gm/dl (2.5-4.0); Total Protein 6.5 gm/dl (6.4-8.2)
[2019-12-29] MEDS: ENOXAPARIN INJ 40 MG/0.4 ML SYR SQ SCH (07:53)
[2019-12-29] MEDS: POTASSIUM CHLORIDE 20 MEQ TABCR PO SCH (07:54)
[2019-12-29] MEDS: BuPROPion SR 100 MG TABCR PO SCH (07:54)
[2019-12-29] MEDS: BusPIRone 15 MG TAB PO SCH (07:54)
[2019-12-29] MEDS: PANTOprazole 40 MG TAB PO SCH (07:54)
[2019-12-29] MEDS ORDERED: DOXYCYCLINE HYCLATE 100 MG CAP PO SCH (09:00)
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
[2019-12-31 18:29] LABS: Babesia microti IgG <1:64 titer (<1:64)
== END 2019-12-29 12:32 | disposition home or self-care (01) | DRG 872 ==
LOC: ED 20:37 → 3E 23:57 → SUATTDRO 23:57 → 3E 12-27 00:29